=== PATIENT | female | born 1995 | race Caucasian/White ===

== ENCOUNTER 2019-02-23 18:30 | Inpatient (IN) | payer MEDICAID, OTHER ==
[~2019-02-23] VITALS: Ht 152.4 cm; Wt 70.5 kg
[2019-02-23 18:37] VITALS: Ht 152.4 cm; Wt 70.5 kg
[2019-02-23] MEDS ORDERED: HYDROmorphONE 1 MG/ML SYG ONE ×2 (18:56→20:17)
[2019-02-23] MEDS ORDERED: NACL 0.9% 3 ML SYG IV SCH (20:30)
[2019-02-23] MEDS ORDERED: HYDROCODONE/APAP (5/325) TAB PO PRN ×2 (20:30)
[2019-02-23] MEDS ORDERED: ACETAMINOPHEN 325 MG TAB PO PRN ×2 (20:30→21:00)
[2019-02-23] MEDS ORDERED: POTASSIUM CHLORIDE (SR) 20 MEQ TAB PO STA (20:32)
[2019-02-23] MEDS ORDERED: SOD CHLORIDE 0.9% 1,000 ML IV ONE (21:00)
[2019-02-23] MEDS ORDERED: ONDANSETRON 4 MG INJ IV PRN (21:00)
[2019-02-23] MEDS ORDERED: HEPARIN 5,000 UNIT/1 ML VIAL SC SCH (21:00)
--- NOTE | 2019-02-23 21:02 | ERD ---
ER Documentation Chief Complaint Chief Complaint fell while playing soccer about 20 min ago, c/o right thigh pain/deformity HPI Patient is a 23-year-old female with no medical problems who presents with right-sided thigh pain. The patient was playing soccer just prior to arrival and tripped while running. She said that her right thigh medially hurt and that it "feels loose". She does not currently have a primary doctor. She is had no treatment as of yet. She has pain with any range of motion and the pain is sharp in nature. ROS All systems reviewed and are negative except as per history of present illness. Allergies Allergies: Coded Allergies: No Known Drug Allergies (Verified Allergy, Unknown, 02/23/19) PMhx/Soc Medical and Surgical Hx: pt denies Medical Hx, pt denies Surgical Hx Hx Alcohol Use: No Hx Substance Use: No Hx Tobacco Use: No Smoking Status: Never smoker FmHx Family History: No diabetes Physical Exam Vitals Vital Signs Date Temp Pulse Resp B/P (MAP) Pulse Ox O2 O2 Flow FiO2 Time Delivery Rate 02/23/19 98.7 100 17 131/82 100 Room Air 20:51 (98) 02/23/19 100.7 114 20 125/78 97 18:37 (94) Physical Exam Const: Moderate distress secondary to pain Head: Atraumatic Eyes: Normal Conjunctiva ENT: Normal External Ears, Nose and Mouth. Neck: Full range of motion. No meningismus. Resp: Clear to auscultation bilaterally Cardio: Regular rate and rhythm, no murmurs Abd: Soft, non tender, non distended. Normal bowel sounds Skin: No petechiae or rashes Back: No midline or flank tenderness Ext: Right thigh swelling and likely deformity with pain to palpation Neur: Awake and alert Psych: Normal Mood and Affect Result Diagram: 02/23/19 18502/23/19 1853 Results 24 hrs Laboratory Tests Test 02/23/19 18:53 White Blood Count 13.2 10^3/ul Red Blood Count 4.63 10^6/ul Hemoglobin 14.1 g/dl Hematocrit 41.0 % Mean Corpuscular Volume 88.6 fl Mean Corpuscular Hemoglobin 30.5 pg Mean Corpuscular Hemoglobin Concent 34.4 g/dl Red Cell Distribution Width 12.0 % Platelet Count 356 10^3/UL Mean Platelet Volume 9.9 fl Immature Granulocytes % 0.600 % Neutrophils % 67.0 % Lymphocytes % 25.5 % Monocytes % 6.1 % Eosinophils % 0.6 % Basophils % 0.2 % Nucleated Red Blood Cells % 0.0 /100WBC Immature Granulocytes # 0.080 10^3/ul Neutrophils # 8.9 10^3/ul Lymphocytes # 3.4 10^3/ul Monocytes # 0.8 10^3/ul Eosinophils # 0.1 10^3/ul Basophils # 0.0 10^3/ul Nucleated Red Blood Cells # 0.0 10^3/ul Prothrombin Time 13.3 Sec Prothrombin Time Ratio 1.0 INR International Normalized Ratio 1.00 Activated Partial Thromboplast Time 25.8 Sec Sodium Level 141 mmol/L Potassium Level 3.2 mmol/L Chloride Level 105 mmol/L Carbon Dioxide Level 22 mmol/L Anion Gap 14 Blood Urea Nitrogen 12 mg/dl Creatinine 0.56 mg/dl Est Glomerular Filtrat Rate mL/min > 60 mL/min Glucose Level 111 mg/dl Calcium Level 10.0 mg/dl Total Bilirubin 0.3 mg/dl Direct Bilirubin 0.00 mg/dl Indirect Bilirubin 0.3 mg/dl Aspartate Amino Transf (AST/SGOT) 27 IU/L Alanine Aminotransferase (ALT/SGPT) 19 IU/L Alkaline Phosphatase 87 IU/L Troponin I < 0.012 ng/ml Total Protein 8.6 g/dl Albumin 4.6 g/dl Globulin 4.00 g/dl Albumin/Globulin Ratio 1.15 Lipase 40 U/L Serum HCG, Qualitative NEGATIVE Current Medications Medications Dose Sig/Katherine Start Time Status Last (Trade) Ordered Route PRN Stop Time Admin Dose Reason Admin 1 mg STK-MED 02/23/19 DC Hydromorphone ONCE .ROUTE 20:17 02/23/19 HCl 20:18 (Dilaudid) Sodium 1,000 ml @ Q10H IV 02/23/19 Chloride 100 mls/hr 20:28 IV Flush 3 ml PER 02/23/19 (NS 3 ml) PROTOCOL IV 20:30 Ondansetron 4 mg Q6H PRN 02/23/19 HCl (Zofran IV 20:30 Inj) NAUSEA/VOMITI NG 650 mg Q6H PRN 02/23/19 Acetaminophen PO .PAIN 1-3 20:30 (Tylenol OR TEMP Tab) 1 tab Q6H PRN 02/23/19 Acetaminophen PO .MOD PAIN 20:30 / 4-6 Hydrocodone Bitart ([place] (5/325)) 2 tab Q6H PRN 02/23/19 Acetaminophen PO .SEVERE 20:30 / PAIN 7-10 Hydrocodone Bitart ([place] (5/325)) Heparin 5,000 unit Q12 SC 02/23/19 Sodium 21:00 (Porcine) (Heparin (5000 Units/1ml)) Potassium 40 meq ONCE STAT 02/23/19 DC Chloride PO 20:32 02/23/19 (Klor-Con 20) 20:38 Sodium 1,000 ml @ Q1H ONCE 02/23/19 Chloride 1,000 mls/hr IV 21:00 02/23/19 21:59 Ondansetron 4 mg BRIDGE ORDER 02/23/19 HCl (Zofran PRN IV 21:00 02/24/19 Inj) NAUSEA/VOMITI 20:59 NG 650 mg ER BRIDGE 02/23/19 Acetaminophen PRN PO 21:00 02/24/19 (Tylenol .MILD PAIN 20:59 Tab) 1-3 OR TEMP Ceftriaxone 50 ml @ ONCE ONCE 02/23/19 Sodium 100 mls/hr IVPB 22:00 02/23/19 22:29 Procedures/MDM X-ray Femur 2V Interpreted by me: Bones: Mid shaft femur fracture Joints: No dislocation Foreign body: None Chest x-ray read by radiology. EKG read by me: Rate/Rhythm: Regular rate and rhythm at a normal rate Intervals: Normal Impression: No evidence of ischemia or arrhythmia Patient is a 23-year-old female who presents with a midshaft right sided femur fracture. I spoke with Dr. Woodruff from orthopedic surgery who is a surgeon on- call. He will see the patient and will likely need to operate. The patient has pre-operatory laboratory studies and imaging studies done. The patient was given Dilaudid for pain. The patient will be admitted to the care of Dr. Black to a medical surgical inpatient bed. Departure Diagnosis: Primary Impression: Femur fracture Encounter type: initial encounter Femur location: unspecified portion of femur Fracture type: closed Fracture morphology: unspecified fracture morphology Laterality: right Qualified Codes: S72.91XA - Unspecified fracture of right femur, initial encounter for closed fracture Condition: Serious MARTIN REMY MD February 23, 2019 21:02
[2019-02-23] MEDS ORDERED: HYDROmorphONE 2 MG/ML SYG IV STA (21:51)
[2019-02-23] MEDS ORDERED: CEFTRIAXONE 1 GM/50 ML (PMX) 50 ML IVPB ONE (22:00)
--- NOTE | 2019-02-23 22:12 | HP ---
Date/Time of Note Date/Time of Note DATE: 02/23/19 TIME: 22:12 Assessment/Plan VTE Prophylaxis SCD applied (from Nsg): Yes Pharmacological prophylaxis: NA/contraindicated Pharm contraindication: other (Awaiting surgical intervention) Lines/Catheters IV Catheter Type (from Nrsg): [place] Lock Assessment/Plan Assessment/Plan 1. Right femur fracture: Status post fall while playing soccer -Keep n.p.o. with IV fluids -Ortho following. -Patient does not have active chest pain. EKG without ST-T wave abnormalities. She is active with METS > 4. Chest x-ray does show cardiomegaly. 2D echo has been ordered. Patient however may proceed with planned surgery without further risk stratification. No need to wait for a completion of a 2D echo to proceed with surgery. -Pain management 2. SIRS: As evidenced by fever, leukocytosis and tachycardia -Likely stress-induced secondary to above -will however check chest x-ray, UA and blood culture as well as lactic 3. Cardiomegaly: As noted on chest x-ray -X-ray also shows borderline central pulmonary vascular congestion -2D echo ordered 4. Obesity with a BMI of 30: Weight reduction is advised Result Diagram: 02/23/19 1853 02/23/19 1853 Results 24hrs Laboratory Tests Test 02/23/19 18:53 02/23/19 21:04 02/23/19 21:09 White Blood Count 13.2 H Red Blood Count 4.63 Hemoglobin 14.1 Hematocrit 41.0 Mean Corpuscular Volume 88.6 Mean Corpuscular Hemoglobin 30.5 Mean Corpuscular 34.4 Hemoglobin Concent Red Cell Distribution Width 12.0 Platelet Count 356 Mean Platelet Volume 9.9 Immature Granulocytes % 0.600 H Neutrophils % 67.0 Lymphocytes % 25.5 Monocytes % 6.1 Eosinophils % 0.6 Basophils % 0.2 Nucleated Red Blood Cells % 0.0 Immature Granulocytes # 0.080 H Neutrophils # 8.9 H Lymphocytes # 3.4 H Monocytes # 0.8 Eosinophils # 0.1 Basophils # 0.0 Nucleated Red Blood Cells # 0.0 Prothrombin Time 13.3 Prothrombin Time Ratio 1.0 INR International 1.00 Normalized Ratio Activated Partial Thromboplast 25.8 Time Sodium Level 141 Potassium Level 3.2 L Chloride Level 105 Carbon Dioxide Level 22 Anion Gap 14 H Blood Urea Nitrogen 12 Creatinine 0.56 Est Glomerular Filtrat > 60 Rate mL/min Glucose Level 111 Calcium Level 10.0 Total Bilirubin 0.3 Direct Bilirubin 0.00 Indirect Bilirubin 0.3 Aspartate Amino 27 Transf (AST/SGOT) Alanine 19 Aminotransferase (ALT/SGPT) Alkaline Phosphatase 87 Troponin I < 0.012 Total Protein 8.6 H Albumin 4.6 Globulin 4.00 H Albumin/Globulin Ratio 1.15 Lipase 40 Serum HCG, Qualitative NEGATIVE Urine Color YELLOW Urine Clarity SLIGHTLY CLOUDY A Urine pH 6.0 Urine Specific [place] 1.020 Urine Ketones TRACE A Urine Nitrite NEGATIVE Urine Bilirubin NEGATIVE Urine Urobilinogen NEGATIVE Urine Leukocyte Esterase TRACE A Urine Microscopic RBC 1 Urine Microscopic WBC 1 Urine Bacteria FEW A Urine Mucus FEW A Urine Hemoglobin NEGATIVE Urine Glucose NEGATIVE Urine Total Protein NEGATIVE Lactic Acid Level 1.5 HPI/ROS Admit Date/Time Admit Date/Time Hx of Present Illness This is a 23-year-old female with no past medical history who presents the ER complaining of right lower extremity pain. She said that she fell while playing soccer. Imaging in the ER shows mildly displaced transverse fracture involving the right femoral diaphysis. PMH/Family/Social Past Medical History Medical History: no pertinent history Medications Current Medications Sodium Chloride 1,000 ml @ 100 mls/hr Q10H IV ; Start 02/23/19 at 20:28 IV Flush (NS 3 ml) 3 ml PER PROTOCOL IV ; Start 02/23/19 at 20:30 Ondansetron HCl (Zofran Inj) 4 mg Q6H PRN IV NAUSEA/VOMITING; Start 02/23/19 at 20:30 Acetaminophen (Tylenol Tab) 650 mg Q6H PRN PO .PAIN 1-3 OR TEMP; Start 02/23/19 at 20:30 Acetaminophen/ Hydrocodone Bitart ([place] (5/325)) 1 tab Q6H PRN PO .MOD PAIN 4- 6; Start 02/23/19 at 20:30 Acetaminophen/ Hydrocodone Bitart ([place] (5/325)) 2 tab Q6H PRN PO .SEVERE PAIN 7-10; Start 02/23/19 at 20:30 Heparin Sodium (Porcine) (Heparin (5000 Units/1ml)) 5,000 unit Q12 SC ; Start 02/23/19 at 21:00 Ondansetron HCl (Zofran Inj) 4 mg BRIDGE ORDER PRN IV NAUSEA/VOMITING; Start 02/23/19 at 21:00; Stop 02/24/19 at 20:59 Acetaminophen (Tylenol Tab) 650 mg ER BRIDGE PRN PO .MILD PAIN 1-3 OR TEMP; Start 02/23/19 at 21:00; Stop 02/24/19 at 20:59 Ceftriaxone Sodium 50 ml @ 100 mls/hr ONCE ONCE IVPB ; Start 02/23/19 at 22:00; Stop 02/23/19 at 22:29 Coded Allergies: No Known Drug Allergies (Verified Allergy, Unknown, 02/23/19) Past Surgical History Past Surgical Hx: no surgical history Family History Significant Family History: no pertinent family hx Social History Alcohol Use: none Smoking Status: Never smoker Drug Use: none Exam/Review of Systems Vital Signs Vitals Vital Signs Date Temp Pulse Resp B/P (MAP) Pulse Ox O2 O2 Flow FiO2 Time Delivery Rate 02/23/19 98.7 100 17 131/82 100 Room Air 20:51 (98) Exam Constitutional: other (No acute distress. Able to speak in full sentence and answering question appropriately) Head: normocephalic, atraumatic Eyes: EOMI, PERRL Respiratory: clear to auscultation, normal air movement Cardiovascular: other (Tachycardic regular rhythm) Gastrointestinal: soft, non-tender Extremities: other (Tenderness palpation of the right thigh.) PAM CAMACHO MD February 23, 2019 22:12
[2019-02-23 23:09] VITALS: BP 127/78; PULSE 94; RESP 17
[2019-02-23] MEDS: SOD CHLORIDE 0.9% 1,000 ML IV SCH (23:46)
[2019-02-23] MEDS: ONDANSETRON 4 MG INJ IV PRN (23:59)
[2019-02-24] MEDS ORDERED: DIAZEPAM 2 MG TAB PO PRN
[2019-02-24] MEDS ORDERED: DIAZEPAM 5 MG/ML SYG IV ONE (00:30)
[2019-02-24] MEDS ORDERED: DIAZEPAM 5 MG/ML SYG IV SCH (00:39)
--- NOTE | 2019-02-24 00:47 | CONS ---
Assessment/Plan Assessment/Plan Hospital Course (Demo Recall) 23-year-old female sustained a closed right femoral shaft fracture after an injury while playing soccer. She is neurovascularly intact. I reviewed treatment options with the patient. I strongly recommended surgical fixation with an intramedullary brenden. I reviewed benefits and risks with the patient. Risks include but not limited to medical complications, cardiopulmonary complications, anesthetic complications, DVT, bleeding, infection, nonunion, malunion, malrotation, hardware failure, neurovascular injury, continued pain, need to remove hardware, fracture, need for further surgery. She understood these benefits and risks and wished to proceed with surgery. Ideally the patient will be placed in skeletal traction until surgery. However to the best of my knowledge skeletal traction is not available at this hospital. Therefore Ruiz's traction will be utilized. Plan: Ruiz's traction 15 pounds right lower extremity Nonweightbearing right lower extremity N.p.o. Pain control. Valium 2 mg for muscle spasms S[place] DVT prophylaxis: SCDs while admitted. Lovenox 40 mg daily x6 weeks starting day after surgery Medical clearance Plan for surgery in the afternoon of 02/24/2019 Consultation Date/Type/Reason Admit Date/Time Date of Consultation: February 23, 2019 Reason for Consultation Right femur fracture Date/Time of Note DATE: 02/24/19 TIME: 00:37 Hx of Present Illness This is a 23-year-old female who was playing soccer today and stepped in a hole in the ground fell directly onto her femur. She presented to the emergency department [facility] with severe pain and right thigh deformity. Patient was diagnosed with a right femoral shaft fracture. Orthopedics was consulted. Patient does states she feels that her foot slightly numb but she can grossly feel sensation to her foot. Patient denies any other medical problems. Denies previous surgery. Denies previous injury to the right lower extremity. Patient denies fever, chills, shortness of breath, chest pain, nausea/vomiting, constipation, diarrhea Past Medical History Medical History: no pertinent history Medications Current Medications Sodium Chloride 1,000 ml @ 100 mls/hr Q10H IV Last administered on 02/23/19at 23:46; Admin Dose 100 MLS/HR; Start 02/23/19 at 20:28 IV Flush (NS 3 ml) 3 ml PER PROTOCOL IV ; Start 02/23/19 at 20:30 Ondansetron HCl (Zofran Inj) 4 mg Q6H PRN IV NAUSEA/VOMITING Last administered on 02/23/19at 23:59; Admin Dose 4 MG; Start 02/23/19 at 20:30 Acetaminophen (Tylenol Tab) 650 mg Q6H PRN PO .PAIN 1-3 OR TEMP; Start 02/23/19 at 20:30 Acetaminophen/ Hydrocodone Bitart ([place] (5/325)) 1 tab Q6H PRN PO .MOD PAIN 4- 6; Start 02/23/19 at 20:30 Acetaminophen/ Hydrocodone Bitart ([place] (5/325)) 2 tab Q6H PRN PO .SEVERE PAIN 7-10; Start 02/23/19 at 20:30 Ondansetron HCl (Zofran Inj) 4 mg BRIDGE ORDER PRN IV NAUSEA/VOMITING; Start 02/23/19 at 21:00; Stop 02/24/19 at 20:59 Acetaminophen (Tylenol Tab) 650 mg ER BRIDGE PRN PO .MILD PAIN 1-3 OR TEMP; Start 02/23/19 at 21:00; Stop 02/24/19 at 20:59 Diazepam (Valium) 2 mg Q6H PRN PO MUSCLE SPASMS Last administered on 02/24/19at 00:19; Admin Dose 2 MG; Start 02/24/19 at 00:00 Hydromorphone HCl (Dilaudid) 1 mg Q3H PRN IV BREAKTHROUGH PAIN; Start 02/24/19 at 00:00 Allergies: Coded Allergies: No Known Drug Allergies (Verified Allergy, Unknown, 02/23/19) Past Surgical History Past Surgical Hx: no surgical history Family History Significant Family History: no pertinent family hx Social History Alcohol Use: rarely Smoking Status: Never smoker Drug Use: none Exam/Review of Systems Exam Vitals Vital Signs Date Temp Pulse Resp B/P (MAP) Pulse Ox O2 O2 Flow FiO2 Time Delivery Rate 02/23/19 98.2 94 17 127/78 97 Room Air 23:09 (94) Intake and Output 02/23/19 02/23/19 02/24/19 1515:00 23:00 07:00 IntakeIntake Total 100 ml BalanceBalance 100 ml Exam General: Awake, alert, in no acute distress, pleasant and cooperative Heart: regular rhythm Lungs: breathing comfortably, no tachypnea or dyspnea MUSCULOSKELETAL: Patient is nontender to palpation throughout the entire body except for the right thigh. Right lower extremity: The skin is intact. There is a gross deformity to the mid thigh. There is swelling. There is tenderness palpation over the femur. Sensation intact to light touch in a sural, saphenous, deep peroneal, superficial peroneal, medial and lateral plantar nerve distribution. Motor is intact, patient able to dorsiflex and plantarflex ankle and extend and flex great toe. Dorsalis Pedis pulse +2, Brisk capillary refill. Compartments are soft. Calves non-tender to palpation bilaterally. Results Result Diagram: 02/23/19185202/23/191852 Results 24hrs Laboratory Tests Test 02/23/19 18:53 02/23/19 21:04 02/23/19 21:09 White Blood Count 13.2 H Red Blood Count 4.63 Hemoglobin 14.1 Hematocrit 41.0 Mean Corpuscular Volume 88.6 Mean Corpuscular Hemoglobin 30.5 Mean Corpuscular 34.4 Hemoglobin Concent Red Cell Distribution Width 12.0 Platelet Count 356 Mean Platelet Volume 9.9 Immature Granulocytes % 0.600 H Neutrophils % 67.0 Lymphocytes % 25.5 Monocytes % 6.1 Eosinophils % 0.6 Basophils % 0.2 Nucleated Red Blood Cells % 0.0 Immature Granulocytes # 0.080 H Neutrophils # 8.9 H Lymphocytes # 3.4 H Monocytes # 0.8 Eosinophils # 0.1 Basophils # 0.0 Nucleated Red Blood Cells # 0.0 Prothrombin Time 13.3 Prothrombin Time Ratio 1.0 INR International 1.00 Normalized Ratio Activated Partial Thromboplast 25.8 Time Sodium Level 141 Potassium Level 3.2 L Chloride Level 105 Carbon Dioxide Level 22 Anion Gap 14 H Blood Urea Nitrogen 12 Creatinine 0.56 Est Glomerular Filtrat > 60 Rate mL/min Glucose Level 111 Calcium Level 10.0 Total Bilirubin 0.3 Direct Bilirubin 0.00 Indirect Bilirubin 0.3 Aspartate Amino 27 Transf (AST/SGOT) Alanine 19 Aminotransferase (ALT/SGPT) Alkaline Phosphatase 87 Troponin I < 0.012 Total Protein 8.6 H Albumin 4.6 Globulin 4.00 H Albumin/Globulin Ratio 1.15 Lipase 40 Serum HCG, Qualitative NEGATIVE Urine Color YELLOW Urine Clarity SLIGHTLY CLOUDY A Urine pH 6.0 Urine Specific [place] 1.020 Urine Ketones TRACE A Urine Nitrite NEGATIVE Urine Bilirubin NEGATIVE Urine Urobilinogen NEGATIVE Urine Leukocyte Esterase TRACE A Urine Microscopic RBC 1 Urine Microscopic WBC 1 Urine Bacteria FEW A Urine Mucus FEW A Urine Hemoglobin NEGATIVE Urine Glucose NEGATIVE Urine Total Protein NEGATIVE Lactic Acid Level 1.5 Imaging Imaging AP pelvis, AP and lateral right femur, 3 views of the right knee personally reviewed. There is an acute transverse midshaft femur fracture. There is shortening and displacement of the fracture. Medications Medication Current Medications Sodium Chloride 1,000 ml @ 100 mls/hr Q10H IV Last administered on 02/23/19at 23:46; Admin Dose 100 MLS/HR; Start 02/23/19 at 20:28 IV Flush (NS 3 ml) 3 ml PER PROTOCOL IV ; Start 02/23/19 at 20:30 Ondansetron HCl (Zofran Inj) 4 mg Q6H PRN IV NAUSEA/VOMITING Last administered on 02/23/19at 23:59; Admin Dose 4 MG; Start 02/23/19 at 20:30 Acetaminophen (Tylenol Tab) 650 mg Q6H PRN PO .PAIN 1-3 OR TEMP; Start 02/23/19 at 20:30 Acetaminophen/ Hydrocodone Bitart ([place] (5/325)) 1 tab Q6H PRN PO .MOD PAIN 4- 6; Start 02/23/19 at 20:30 Acetaminophen/ Hydrocodone Bitart ([place] (5/325)) 2 tab Q6H PRN PO .SEVERE PAIN 7-10; Start 02/23/19 at 20:30 Ondansetron HCl (Zofran Inj) 4 mg BRIDGE ORDER PRN IV NAUSEA/VOMITING; Start 02/23/19 at 21:00; Stop 02/24/19 at 20:59 Acetaminophen (Tylenol Tab) 650 mg ER BRIDGE PRN PO .MILD PAIN 1-3 OR TEMP; Start 02/23/19 at 21:00; Stop 02/24/19 at 20:59 Diazepam (Valium) 2 mg Q6H PRN PO MUSCLE SPASMS Last administered on 02/24/19at 00:19; Admin Dose 2 MG; Start 02/24/19 at 00:00 Hydromorphone HCl (Dilaudid) 1 mg Q3H PRN IV BREAKTHROUGH PAIN; Start 02/24/19 at 00:00 BRYSON RUSSELL MD February 24, 2019 00:47
[2019-02-24 01:52] VITALS: BP 123/65; PULSE 100; RESP 18
[2019-02-24] MEDS: HYDROmorphONE 1 MG/ML SYG IV PRN ×3 (03:47→12:17)
[2019-02-24] MEDS: SOD CHLORIDE 0.9% 1,000 ML IV SCH ×2 (07:01→16:28)
[2019-02-24 07:36] VITALS: BP 106/57; PULSE 96; RESP 18
[2019-02-24] MEDS: ONDANSETRON 4 MG INJ IV PRN (10:14)
--- NOTE | 2019-02-24 10:48 | PN ---
Date/Time of Note Date/Time of Note DATE: 02/24/19 TIME: 10:47 Assessment/Plan VTE Prophylaxis Risk score (from Ns)>0 risk: 6 SCD applied (from [facility]): Yes Pharmacological prophylaxis: NA/contraindicated, LMWH Pharm contraindication: surgical contra Lines/Catheters IV Catheter Type (from [facility]): Peripheral IV Urinary Cath still in place: Yes Reason Cath still needed: other (indicate) Assessment/Plan Hospital Course SUBJECTIVE: left leg on traction. No pain. OBJECTIVE: Vital signs-see below PHYSICAL EXAM: Constitutional: Adequately built,not in acute distress. HEENT: Head atraumatic and normocephalic. Eyes: Extraocular muscles intact. Anicteric sclerae. Pupils equal bilaterally, reactive to light. NECK: Supple without lymph node. CHEST: Clear and good breath sounds equally. No wheezing. No rhonchi. HEART: S1, S2. Regular rate and rhythm. ABDOMEN: Soft/non tender with no rebound tenderness. Bowel sounds were present. EXTREMITIES: LLE on traction. No cyanosis, clubbing or edema. NEUROLOGIC: Alert and oriented x3. No focal deficit. No sensory deficit. PSYCHOSOCIAL: No signs of depression. INTEGUMENTARY: No open wounds. ASSESSMENT AND PLAN:23 yo f w/no pmh admitted w/ closed right femoral fx... 1. Acute right femoral shaft fracture. -Management per orthopedics. Currently on box traction 15 pounds to RLE. -Plan for IM nailing this afternoon. -Pain control,dvt ppx 2. Obesity with BMI 30.3. -Weight reduction advised. 3. Presumed UTI -Ceftriaxone x5 days. Follow-up urine culture-please note that patient received a dose of ceftriaxone prior to urine culture.. DVT prophylaxis: Per orthopedic, SCDs prior surgery and Lovenox 40 mg subcu x6 weeks post operative. Disposition: Plan for orthopedic intervention today. Follow-up orthopedic recommendation postoperatively. Patient was seen in collaboration with Dr. Telles. Result Diagram: 02/24/19 0432 02/24/19 0432 Results 24hrs Laboratory Tests Test 02/23/19 18:53 02/23/19 21:04 02/23/19 21:09 02/24/19 04:32 White Blood Count 13.2 H 10.5 # Red Blood Count 4.63 3.95 L Hemoglobin 14.1 12.2 Hematocrit 41.0 35.6 L Mean Corpuscular 88.6 90.1 Volume Mean Corpuscular 30.5 30.9 Hemoglobin Mean Corpuscular 34.4 34.3 Hemoglobin Concent Red Cell 12.0 12.0 Distribution Width Platelet Count 356 310 Mean Platelet 9.9 9.8 Volume Immature 0.600 H 0.400 Granulocytes % Neutrophils % 67.0 79.3 H Lymphocytes % 25.5 11.6 L Monocytes % 6.1 8.5 Eosinophils % 0.6 0.0 Basophils % 0.2 0.2 Nucleated Red 0.0 0.0 Blood Cells % Immature 0.080 H 0.040 H Granulocytes # Neutrophils # 8.9 H 8.3 H Lymphocytes # 3.4 H 1.2 Monocytes # 0.8 0.9 Eosinophils # 0.1 0.0 Basophils # 0.0 0.0 Nucleated Red 0.0 0.0 Blood Cells # Prothrombin Time 13.3 Prothrombin Time 1.0 Ratio INR International 1.00 Normalized Ratio Activated 25.[address] Time Sodium Level 141 140 Potassium Level 3.2 L 3.8 Chloride Level 105 107 Carbon Dioxide 22 23 Level Anion Gap 14 H 10 Blood Urea 12 8 Nitrogen Creatinine 0.56 0.43 L Est Glomerular > 60 > 60 Filtrat Rate mL/min Glucose Level 111 122 Calcium Level 10.0 9.0 Total Bilirubin 0.3 0.3 Direct Bilirubin 0.00 0.00 Indirect Bilirubin 0.3 0.3 Aspartate Amino 27 28 Transf (AST/SGOT) Alanine 19 16 Aminotransferase ( ALT/SGPT) Alkaline 87 71 Phosphatase Troponin I < 0.012 Total Protein 8.6 H 7.4 # Albumin 4.6 3.8 Globulin 4.00 H 3.60 H Albumin/Globulin 1.15 1.05 Ratio Lipase 40 Serum HCG, NEGATIVE Qualitative Urine Color YELLOW Urine Clarity SLIGHTLY CLOUDY A Urine pH 6.0 Urine Specific 1.020 [place] Urine Ketones TRACE A Urine Nitrite NEGATIVE Urine Bilirubin NEGATIVE Urine Urobilinogen NEGATIVE Urine Leukocyte TRACE A Esterase Urine Microscopic 1 RBC Urine Microscopic 1 WBC Urine Bacteria FEW A Urine Mucus FEW A Urine Hemoglobin NEGATIVE Urine Glucose NEGATIVE Urine Total NEGATIVE Protein Lactic Acid Level 1.5 Phosphorus Level 3.4 Magnesium Level 2.0 B-Type Natriuretic 92 Peptide Exam/Review of Systems Exam Vitals Vital Signs Date Temp Pulse Resp B/P (MAP) Pulse Ox O2 O2 Flow FiO2 Time Delivery Rate 02/24/19 98.0 96 18 106/57 99 Room Air 07:36 (73) Intake and Output 02/23/19 02/23/19 02/24/19 1515:00 23:00 07:00 IntakeIntake Total 1000 ml 1150 ml OutputOutput Total 800 ml BalanceBalance 1000 ml 350 ml Results Results 24hrs Laboratory Tests Test 02/23/19 18:53 02/23/19 21:04 02/23/19 21:09 02/24/19 04:32 White Blood Count 13.2 H 10.5 # Red Blood Count 4.63 3.95 L Hemoglobin 14.1 12.2 Hematocrit 41.0 35.6 L Mean Corpuscular 88.6 90.1 Volume Mean Corpuscular 30.5 30.9 Hemoglobin Mean Corpuscular 34.4 34.3 Hemoglobin Concent Red Cell 12.0 12.0 Distribution Width Platelet Count 356 310 Mean Platelet 9.9 9.8 Volume Immature 0.600 H 0.400 Granulocytes % Neutrophils % 67.0 79.3 H Lymphocytes % 25.5 11.6 L Monocytes % 6.1 8.5 Eosinophils % 0.6 0.0 Basophils % 0.2 0.2 Nucleated Red 0.0 0.0 Blood Cells % Immature 0.080 H 0.040 H Granulocytes # Neutrophils # 8.9 H 8.3 H Lymphocytes # 3.4 H 1.2 Monocytes # 0.8 0.9 Eosinophils # 0.1 0.0 Basophils # 0.0 0.0 Nucleated Red 0.0 0.0 Blood Cells # Prothrombin Time 13.3 Prothrombin Time 1.0 Ratio INR International 1.00 Normalized Ratio Activated 25.[address] Time Sodium Level 141 140 Potassium Level 3.2 L 3.8 Chloride Level 105 107 Carbon Dioxide 22 23 Level Anion Gap 14 H 10 Blood Urea 12 8 Nitrogen Creatinine 0.56 0.43 L Est Glomerular > 60 > 60 Filtrat Rate mL/min Glucose Level 111 122 Calcium Level 10.0 9.0 Total Bilirubin 0.3 0.3 Direct Bilirubin 0.00 0.00 Indirect Bilirubin 0.3 0.3 Aspartate Amino 27 28 Transf (AST/SGOT) Alanine 19 16 Aminotransferase ( ALT/SGPT) Alkaline 87 71 Phosphatase Troponin I < 0.012 Total Protein 8.6 H 7.4 # Albumin 4.6 3.8 Globulin 4.00 H 3.60 H Albumin/Globulin 1.15 1.05 Ratio Lipase 40 Serum HCG, NEGATIVE Qualitative Urine Color YELLOW Urine Clarity SLIGHTLY CLOUDY A Urine pH 6.0 Urine Specific 1.020 [place] Urine Ketones TRACE A Urine Nitrite NEGATIVE Urine Bilirubin NEGATIVE Urine Urobilinogen NEGATIVE Urine Leukocyte TRACE A Esterase Urine Microscopic 1 RBC Urine Microscopic 1 WBC Urine Bacteria FEW A Urine Mucus FEW A Urine Hemoglobin NEGATIVE Urine Glucose NEGATIVE Urine Total NEGATIVE Protein Lactic Acid Level 1.5 Phosphorus Level 3.4 Magnesium Level 2.0 B-Type Natriuretic 92 Peptide Medications Medication Current Medications Sodium Chloride 1,000 ml @ 100 mls/hr Q10H IV Last administered on 02/24/19at 07:01; Admin Dose 100 MLS/HR; Start 02/23/19 at 20:28 IV Flush (NS 3 ml) 3 ml PER PROTOCOL IV ; Start 02/23/19 at 20:30 Ondansetron HCl (Zofran Inj) 4 mg Q6H PRN IV NAUSEA/VOMITING Last administered on 02/24/19at 10:14; Admin Dose 4 MG; Start 02/23/19 at 20:30 Acetaminophen (Tylenol Tab) 650 mg Q6H PRN PO .PAIN 1-3 OR TEMP; Start 02/23/19 at 20:30 Acetaminophen/ Hydrocodone Bitart ([place] (5/325)) 2 tab Q6H PRN PO .SEVERE PAIN 7-10; Start 02/23/19 at 20:30 Ondansetron HCl (Zofran Inj) 4 mg BRIDGE ORDER PRN IV NAUSEA/VOMITING; Start 02/23/19 at 21:00; Stop 02/24/19 at 20:59 Acetaminophen (Tylenol Tab) 650 mg ER BRIDGE PRN PO .MILD PAIN 1-3 OR TEMP; Start 02/23/19 at 21:00; Stop 02/24/19 at 20:59 Diazepam (Valium) 2 mg Q6H PRN PO MUSCLE SPASMS Last administered on 02/24/19at 00:19; Admin Dose 2 MG; Start 02/24/19 at 00:00 Hydromorphone HCl (Dilaudid) 1 mg Q3H PRN IV BREAKTHROUGH PAIN Last administered on 02/24/19at 07:05; Admin Dose 1 MG; Start 02/24/19 at 00:00 Ceftriaxone Sodium 500 mg/ Sodium Chloride 50 ml @ 100 mls/hr Q24H IVPB ; Start 02/24/19 at 11:00; Stop 02/28/19 at 11:29; Status UNV BERONICA GOMEZ NP February 24, 2019 10:48
[2019-02-24] MEDS ORDERED: CEFTRIAXONE 500 MG in SOD CHLORIDE 0.9% 50 ML IVPB SCH (11:00)
--- NOTE | 2019-02-24 14:16 | RADRPT ---
Echocardiogram Report Patient Name: LATONYA FRANKPatient ID: [id number] : 1995 (23y 2m)Study Date: 02/24/2019 7:17:34 AM Gender: FAccession #: [id number] Tech: Brandie Fairbanks RDCS Location: [facility] Ref.Physician: PAM CAMACHO Height(Cm): BSA: Weight(Kg): Quality: AdequateAccount #: Procedures: Echocardiographic Report: Transthoracic echocardiogram with complete 2D, M-Mode, and doppler examination. Indications: Pulmonary vasc congestion, cardiomegaly. Measurements: 2D/M Mode Doppler Measurement Value Normal Range Measurement Value Normal Range LVIDd 2D 4.5 [ 3.8 - 5.2 ] cm AV Peak Damaso 1.7 [ 100.0 - 170.0 ] cm/sec LVIDs 2D 2.8 [ 2.2 - 3.5 ] cm AV Peak PG 11.0 [ 2.0 - 9.0 ] mmHg LVPWd 2D 0.9 [ 0.6 - 0.9 ] cm LVOT Peak Damaso 1.1 [ 70.0 - 110.0 ] cm/sec IVSd 2D 1.0 [ 0.6 - 0.9 ] cm LVOT Peak PG 5.0 [ 2.0 - 6.0 ] mmHg AoR Diam 2D 2.2 [ 2.3 - 3.1 ] cm MV E Peak Damaso 0.8 [ 60.0 - 130.0 ] cm/sec EDV 2D 93.9 [ 46.0 - 106.0 ] ml MV A Peak Damaso 1.0 [ 100.0 - 120.0 ] cm/sec ESV 2D 30.1 [ 14.0 - 42.0 ] ml MV E/A 0.8 [ 0.8 - 1.5 ] ratio EF 2D 67.9 [ 54.0 - 74.0 ] percent MV Decel Time 187 [ 104 - 258 ] msec LA Dimen 2D 2.5 [ 2.7 - 3.8 ] cm MV E/A 0.8 [ 0.8 - 1.5 ] ratio TR Peak Damaso 2.3 [ 100.0 - 280.0 ] cm/sec TR Peak PG 20.0 mmHg RVSP 33.0 [ 10.0 - 36.0 ] mmHg RA Pressure 10.0 mmHg Findings: Left Ventricle: Normal left ventricular systolic function. Normal left ventricular cavity size. Normal left ventricular wall thickness. Ejection fraction is visually estimated at 55 %. Right Ventricle: Normal right ventricular size. Normal right ventricular systolic function. Left Atrium: The left atrium is normal in size. Right Atrium: The right atrium is normal in size. Mitral Valve: Normal appearance and function of the mitral valve with trace physiologic regurgitation. Aortic Valve: Normal appearance of the aortic valve. No significant aortic stenosis or insufficiency. Tricuspid Valve: Normal appearance of the tricuspid valve. Estimated peak PA systolic pressure 23 mmHg. There is trace tricuspid regurgitation. Pulmonic Valve: Pulmonic valve not well visualized. Pericardium: Normal pericardium with no significant pericardial effusion. Aorta: Normal aortic root. IVC: Normal size and normal respiratory collapse consistent with normal right atrial pressure. Conclusions: Normal left ventricular systolic function. Normal left ventricular cavity size. Normal left ventricular wall thickness. Ejection fraction is visually estimated at 55 %. Normal appearance and function of the mitral valve with trace physiologic regurgitation. Normal appearance of the tricuspid valve. Estimated peak PA systolic pressure 23 mmHg. There is trace tricuspid regurgitation. Electronically Signed By: Kenneth Sandoval 2019-02-24 14:16:22 PDT
--- NOTE | 2019-02-24 15:21 | QN ---
Documentation Comment Preoperative risk stratification: Patient's chest x-ray showed cardiomegaly and borderline central pulmonary vascular congestion. Patient completely asymptomatic. She does not have any cardiac/pulmonary disease history. Echocardiogram with preserved ejection fraction. Normal pulmonary artery pressure. No valvular regurgitation. Will have autism specialist follow-up on the chest x-ray as well. Please follow-up pulmonary recommendations. Patient overall is medically cleared to undergo orthopedic surgery for hip fracture. Given patient's medical condition, patient is at a low to intermediate risk for any untoward medical events for surgery. However, benefit likely outweigh risks and recommended to have surgical intervention. Case discussed with BERONICA López NP February 24, 2019 15:21
[2019-02-24 15:41] VITALS: BP 114/58; PULSE 98; RESP 18
--- NOTE | 2019-02-24 17:36 | CONS ---
DATE OF ADMISSION: 02/23/2019 DATE OF CONSULTATION: TYPE OF CONSULTATION: Pulmonary. REASON FOR CONSULTATION: Preop clearance. Thank you, Dr. Dai, for this consultation. HISTORY OF PRESENT ILLNESS: This is a 23-year-old lady who had a recent mechanical fall while playin g soccer, sustained a right femur fracture and had preop chest x-ray which showed mild cardiomegaly, questionable increased vascular congestion. Echocardiogram, however, showed preserved ejection fract ion. The patient is scheduled for surgery this afternoon. Prior to surgery, she has had no preexist ing pulmonary problems. No history of asthma, emphysema. No recurrent chest infections. No cough, fever, or chills. No exertional dyspnea. She remains extremely active before this event. PAST MEDICAL HISTORY: As above. MEDICATIONS: Per chart. ALLERGIES: NONE. SOCIAL HISTORY: Nonsmoker, no alcohol, no history of drug use. FAMILY HISTORY: Noncontributory. SYSTEMS REVIEW: A 12-point review of systems was negative other than that mentioned above. PHYSICAL EXAMINATION: GENERAL: Well-nourished, well-developed lady, comfortable at rest, in no acute distress. VITAL SIGNS: Currently afebrile, pulse is 90, blood pressure 106/57, O2 saturation 99% on room air. NECK: Supple. No JVD or lymphadenopathy. CARDIAC: S1, S2. No added sounds or murmurs. CHEST: Diminished air entry bilaterally. ABDOMEN: Soft, nontender. No guarding or rebound. EXTREMITIES: No cyanosis, clubbing or edema. NEUROLOGIC: Grossly intact. No focal deficits. LABORATORY DATA: White count 10.5, hemoglobin 12.2, platelets 310. Chemistry within normal limits. IMPRESSION AND PLAN: Recent mechanical fall sustaining right femur fracture with chest x-ray that sh owed questionable congestion however normal echocardiogram. From pulmonary standpoint, the patient i s stable to proceed with orthopedic surgery. I recommend outpatient pulmonary followup with repeat c hest x-ray and possible pulmonary function testing. Dictated By: OLLIE KEVIN MD SV/NIURKA Conf#: [id number] DID#: [id number] CC: PAM CAMACHO MD;*EndCC*
[2019-02-24] MEDS ORDERED: FENTAnyl 50 MCG/ML VIAL ONE (18:40)
[2019-02-24] MEDS ORDERED: PROPOFOL 20 ML ONE (18:40)
[2019-02-24] MEDS ORDERED: MIDAZOLAM 1 MG/ML 2 ML INJ ONE (18:40)
[2019-02-24] MEDS ORDERED: ROCURONIUM 50 MG INJ ONE (18:40)
[2019-02-24] MEDS ORDERED: CEFAZOLIN 1 GM INJ ONE (18:40)
[2019-02-24] MEDS ORDERED: NEOSTIGMINE 3 MG/3 ML SYRINGE ONE (18:40)
[2019-02-24] MEDS ORDERED: GLYCOPYRROLATE 0.4 MG INJ ONE (18:40)
[2019-02-24] MEDS ORDERED: ONDANSETRON 4 MG INJ ONE (18:41)
[2019-02-24] MEDS ORDERED: DEXAMETHASONE 4 MG/ML 5 ML INJ ONE (18:41)
[2019-02-24] MEDS ORDERED: morphine SULFATE/PF (10 MG/10 ML) INJ ONE (18:42)
--- NOTE | 2019-02-24 19:20 | PREAC ---
Date/Time of Note Date/Time of Note DATE: 02/24/19 TIME: 19:18 Anesthesia Eval and Record Evaluation Time Pre-Procedure Interview DATE: 02/24/19 TIME: 19:18 Age 23 Sex female NPO: 8 hrs Preoperative diagnosis left femur shaft fracture Planned procedure orif left femur shaft fracture Past Medical History Past Medical History: Includes GI: Obesity Surgery & Anesthesia Issues No known issue Meds Anticoagulation: No Beta Jerod within 24 hr: No Reason Beta Jerod not given: Pt. not on B-Jerod Current Medications Sodium Chloride 1,000 ml @ 100 mls/hr Q10H IV Last administered on 02/24/19at 07:01; Admin Dose 100 MLS/HR; Start 02/23/19 at 20:28 IV Flush (NS 3 ml) 3 ml PER PROTOCOL IV ; Start 02/23/19 at 20:30 Ondansetron HCl (Zofran Inj) 4 mg Q6H PRN IV NAUSEA/VOMITING Last administered on 02/24/19at 10:14; Admin Dose 4 MG; Start 02/23/19 at 20:30 Acetaminophen (Tylenol Tab) 650 mg Q6H PRN PO .PAIN 1-3 OR TEMP; Start 02/23/19 at 20:30 Acetaminophen/ Hydrocodone Bitart ([place] (5/325)) 2 tab Q6H PRN PO .SEVERE PAIN 7-10; Start 02/23/19 at 20:30 Ondansetron HCl (Zofran Inj) 4 mg BRIDGE ORDER PRN IV NAUSEA/VOMITING; Start 02/23/19 at 21:00; Stop 02/24/19 at 20:59 Acetaminophen (Tylenol Tab) 650 mg ER BRIDGE PRN PO .MILD PAIN 1-3 OR TEMP; Start 02/23/19 at 21:00; Stop 02/24/19 at 20:59 Diazepam (Valium) 2 mg Q6H PRN PO MUSCLE SPASMS Last administered on 02/24/19at 00:19; Admin Dose 2 MG; Start 02/24/19 at 00:00 Hydromorphone HCl (Dilaudid) 1 mg Q3H PRN IV BREAKTHROUGH PAIN Last administered on 02/24/19at 12:17; Admin Dose 1 MG; Start 02/24/19 at 00:00 Ceftriaxone Sodium 500 mg/ Sodium Chloride 50 ml @ 100 mls/hr Q24H IVPB Last administered on 02/24/19at 12:25; Admin Dose 100 MLS/HR; Start 02/24/19 at 11:00; Stop 02/28/19 at 11:29 Meds reviewed: Yes Allergies Coded Allergies: No Known Drug Allergies (Verified Allergy, Unknown, 02/23/19) Allergies Reviewed: Yes Labs/Studies Labs Reviewed: Reviewed by anesthesiologist Result Diagram: 02/24/19 0432 02/24/19 0432 Laboratory Tests 02/24/19 04:32 test: Negative Pre-procedure Exam Last vitals Vital Signs Date Temp Pulse Resp B/P (MAP) Pulse Ox O2 O2 Flow FiO2 Time Delivery Rate 02/24/19 98.0 98 18 114/58 95 Room Air 15:41 (76) Airway: Adequate mouth opening, Adequate thyromental dist Mallampati: Mallampati II Teeth: Normal Lung: Normal Heart: Normal ASA Physical Status ASA physical status: 2 Emergency: None Planned Anesthetic General/MAC: ETT Planned Pain Management Sub-arachniod narcotics, Parenteral pain med Pre-operative Attestations Prior to commencing anesthesia and surgery, the patient was re-evaluated, there was verification of: *The patient's identity *The results of appropriate recent lab work and preoperative vital signs *The above evaluation not changing prior to induction *Anesthetic plan, risk benefits, alternative and complications discussed with patient/family; questions answered; patient/family understands, accepts and wishes to proceed. Sandor Celeste M.D. February 24, 2019 19:20
[2019-02-24] MEDS ORDERED: POLYMYXIN/BACITRACIN 1L IRRIG IRR ONE (19:29)
[2019-02-24] MEDS ORDERED: ZOLPIDEM 5 MG TAB PO PRN (19:30)
[2019-02-24] MEDS ORDERED: IPRATROPIUM (NEB) 0.5 MG/2.5 ML AMP HHN PRN (19:30)
[2019-02-24] MEDS ORDERED: FENTAnyl 50 MCG/ML VIAL IV PRN ×3 (19:30)
[2019-02-24] MEDS ORDERED: HYDROmorphONE 1 MG/5 ML IV SYRINGE IV PRN ×3 (19:30)
[2019-02-24] MEDS ORDERED: TRIMETHOBENZAMIDE 100 MG/ML VIAL IM PRN ×2 (19:30)
[2019-02-24] MEDS ORDERED: LABETALOL HCL 20MG INJ IV PRN (19:30)
[2019-02-24] MEDS ORDERED: DIPHENHYDRAMINE 50 MG INJ IV PRN ×2 (19:30)
[2019-02-24] MEDS ORDERED: NALOXONE (0.4 MG/ML) INJ IV PRN (19:30)
[2019-02-24] MEDS ORDERED: MIDAZOLAM 1 MG/ML 2 ML INJ IV PRN (19:30)
[2019-02-24] MEDS ORDERED: EPHEDrine SULFATE 50 MG/5 ML SYG IV PRN (19:30)
[2019-02-24] MEDS ORDERED: MEPERIDINE 25 MG INJ IV PRN (19:30)
[2019-02-24] MEDS ORDERED: HYDROmorphONE 0.5 MG/0.5 ML SYG IV PRN ×2 (19:30)
[2019-02-24] MEDS ORDERED: hydrALAzine 20 MG INJ IV PRN (19:30)
[2019-02-24] MEDS ORDERED: KETOROLAC 30 MG INJ IV PRN (19:30)
[2019-02-24] MEDS ORDERED: NALBUPHINE HCL (10 MG/1 ML) INJ IV PRN (19:30)
[2019-02-24] MEDS ORDERED: ONDANSETRON 4 MG INJ IV PRN ×2 (19:30)
[2019-02-24] MEDS ORDERED: ALBUTEROL 0.083% (NEB) 2.5 MG/3 ML AMP HHN PRN (19:30)
[2019-02-24] MEDS ORDERED: OXYCODONE/ACETAMINOPHEN (5/325) TAB PO PRN ×2 (19:30)
[2019-02-24] MEDS ORDERED: POLYMYXIN/BACITRACIN 1L IRRIG ONE (23:31)
[2019-02-25] VITALS (23 sets, daily range): BP systolic 101–141; BP diastolic 56–84; PULSE 79–142; RESP 10–28
[2019-02-25] MEDS ORDERED: SUGAMMADEX SODIUM 200 MG/2 ML VIAL IV ONE (00:10)
[2019-02-25] MEDS: ONDANSETRON 4 MG INJ IV PRN (00:53)
[2019-02-25] MEDS ORDERED: oxyCODONE 15 MG TAB PO PRN (01:00)
--- NOTE | 2019-02-25 01:22 | OPR ---
Date/Time of Note Date/Time of Note DATE: 02/25/19 TIME: : Operative Report Procedure Date: February 24, 2019 Preoperative Diagnosis Closed right femoral shaft fracture Postoperative Diagnosis Same as preoperative diagnosis Operation/Procedure Performed Intramedullary nail of right femoral shaft fracture Surgeon see signature line Field Pipelines Supervisor none Anesthesia Type: general, spinal Estimated Blood Loss: 200 - 250 ml's Transfusion none Specimen None Grafts/Implants Jacque T2 lateral entry femoral nail 9 x 320 mm 4 interlocking screws 1 compression screw Tubes/Drains None Complications none Pt Condition Post Procedure: stable Disposition: PACU Procedure Description Indications and consent: Is a 23-year-old female who presented to the emergency department Sunday evening after stepping in a ditch while playing with soccer. She had severe right leg pain and was unable to bear weight. She was diagnosed with a right transverse proximal 1/3 femoral shaft fracture in the emergency department it was closed. She is neurovascular intact. Orthopedics was consulted. She was then examined and found to have no other injuries. She was neurovascularly intact. I reviewed treatment options with the patient. I strongly recommended surgical treatment with intramedullary nail. Reviewed the benefits and risks with the patient. Risks include but not limited to medical complications, anesthetic complications, cardiopulmonary complications, DVT, bleeding, infection, nonunion, malunion, hardware failure, pain, neurovascular injury, need for further surgery. She understood these benefits and risks and wished to proceed with surgery. Procedure in detail: The patient was brought to the operating room. She was given a spinal anesthetic and general anesthetic. She was transferred from the hospital bed to the [place] table in supine position. All bony prominences were well-padded. At this time the right lower extremity was placed in traction. Fluoroscopy was used to confirm stability to obtain appropriate views. Fracture was preliminary reduced with traction and a crutch under the distal fragment. At this time the right lower extremity was prepped and draped in normal sterile fashion. Timeout was performed confirming the patient's name, medical record number, diagnosis, procedure performed and laterality procedure. 2 g of Ancef was dosed. At this time fluoroscopy was used to obtain the location of the greater trochanter as well as the longitudinal axis of the femur. The patient was muscular as well as had a significant subcutaneous adipose layer. A 6 to 8 cm incision was made slightly posterior and proximal to the tip of the greater trochanter. Because of deforming forces of the fracture the greater trochanter was more posterior as the proximal femur was externally rotated. Once the tip the greater trochanter could be palpated a starting awl was used to find the starting point. This was just medial to the tip of the greater trochanter and over the middle to anterior one third on the lateral. Once this was obtained and confirmed on fluoroscopy a guidepin was placed through the starting awl. There was some difficulty adducting enough to obtain the appropriate angle. This had to be tried several times. The soft tissue sleeve was placed over the guidepin followed by the opening reamer. After this was complete our attention turned towards the fracture. The fracture was transverse. There was very little cortical read. The fracture reduced nicely on AP. However on the lateral the proximal fragment was flexed and displaced 100%. External forces such as using a mallet were not substantial enough to reduce this on the lateral x-ray. More traction was placed to unhook any impaction of the fracture. At this time a small incision was made over the anterior thigh near the fracture site over the proximal fragment. Hemostat was used to palpate bone. A large Steinmann pin was driven into the femur from the AP direction. This was used as a joystick the fracture was easily reduced. Releasing this time and pin the fracture remained most reduced and ulnar required external forces to complete reduction. Therefore this time pin was backed out to be unicortical in order not to be in the way of reaming. Reduction was confirmed on AP and lateral x-rays. A ball-tipped guidewire was then placed down the femoral shaft. The ball-tipped guidewire had a small bend to it. The ball-tipped guidepin easily passed through the fracture site down into the distal physeal scar of the femur. AP and lateral imaging confirmed the ball-tipped guidewire to be in the center in both planes. Length the nail was measured to be approximately 350. However there was planned compression given the transverse nature of the fracture and the ball-tipped guidewire was slightly deep. Therefore a 320 mm nail was chosen. At this time we continued to keep reduction began to ream starting the 9 mm then a 10 mm then a 10.5 mm diameter reamer. At 10.5 mm diameter there was substantial chatter. Therefore a 9 mm diameter nail was chosen. At this time the 9 x 320 mm nail was placed over the ball-tipped guidewire and inserted into the femur. This was a very tight fit. The slotted mallet was used to impact the femoral nail into the appropriate position. Since was plan compression the nail was buried approximately 10-15mm. At this time attention turned towards the rotation of the reduction. Both extremities were placed in identical rotation on the [place] table. AP pelvis was taken with fluoroscopy demonstrating symmetric femoral necks and lesser trochan ter profiles. Therefore the rotational alignment was good as well as the coronal and sagittal. Perfect circles were then used to place 2 distal interlocking screws. Once this was complete the compression screw was used to compress the fracture site. The fracture compressed a few millimeters. At this time another proximal static interlocking screw was placed. Final x-rays conf irmed good positioning of components as well as good reduction. The cheek was removed. The nail was deep about 10 mm. Therefore a 10 mm end cap was chosen. Then end cap was attempted to be placed. However secondary to the patient's body habitus it was not possible to get the end cap in line with the nail. The end cap continued to cross thread. Therefore decided be best to remove the end cap. This time the wounds were closely irrigated. The IT band and glutes max was fascia was closed with 0 Vicryl [id number] fashion. Deep subcutaneous closed with 0 Vicryl simple interrupted fashion. The subcutaneous layer closed with 2-0 Vicryl. Skin was closed with eloisa. Wounds dressed with Mepilex. All counts were correct x2 Disposition: Patient was explained transferred to PACU in stable condition. She will be weightbearing as tolerated on the right lower extremity. She will be on DVT prophylaxis Lovenox 40 mg daily x6 weeks. She will be on prophylactic antibiotics for 24 hours. She will have physical therapy tomorrow. Discharge planning. BRYSON RUSSELL MD February 25, 2019 01:22
[2019-02-25] MEDS: SOD CHLORIDE 0.9% 1,000 ML IV SCH (04:19)
[2019-02-25] MEDS: CEFAZOLIN 1 GM/50 ML (PMX) 50 ML IVPB SCH ×3 (05:54→21:53)
--- NOTE | 2019-02-25 06:52 | CONS ---
Assessment/Plan Assessment/Plan Assessment/Plan (Daily) Status post trauma to the right leg with femoral fracture. Scheduled for surgery 02/24/2019. I have seen patient prior to surgery and Told her she will probably need to have some postoperative pain control. Consultation Date/Type/Reason Admit Date/Time Date/Time of Note DATE: 02/25/19 TIME: 06:49 Hx of Present Illness Is a very pleasant 23-year-old female who fractured her right femur while playing soccer. Patient states that she ran into another person fell down. There is no prior chest pain shortness of breath PND orthopnea pitting edema syncope true vertigo. She was not knocked unconscious there was no tonic-clonic seizure activity biting of her tongue or incontinence of urine or feces. Was transported to emergency room [facility] diagnosed with right femoral fracture seen by orthopedic surgery and scheduled to have a definitive procedure done 02/24/2017. Patient states she has [place] no pain at all. She has no other comorbid medical problems. Constitutional: no complaints, improved Eyes: no complaints ENT: no complaints Respiratory: no complaints Cardiovascular: no complaints Gastrointestinal: no complaints Genitourinary: no complaints Musculoskeletal: no complaints Skin: no complaints Neurologic: no complaints Endocrine: no complaints Lymphatic: no complaints Psychological: no complaints, nl mood/affect Immunologic: no complaints Past Medical History Medical History: no pertinent history Medications Current Medications Sodium Chloride 1,000 ml @ 100 mls/hr Q10H IV Last administered on 02/25/19at 04:19; Admin Dose 100 MLS/HR; Start 02/23/19 at 20:28 IV Flush (NS 3 ml) 3 ml PER PROTOCOL IV ; Start 02/23/19 at 20:30 Ondansetron HCl (Zofran Inj) 4 mg Q6H PRN IV NAUSEA/VOMITING Last administered on 02/25/19at 00:53; Admin Dose 4 MG; Start 02/23/19 at 20:30 Acetaminophen (Tylenol Tab) 650 mg Q6H PRN PO .PAIN 1-3 OR TEMP; Start 02/23/19 at 20:30 Diazepam (Valium) 2 mg Q6H PRN PO MUSCLE SPASMS Last administered on 02/24/19at 00:19; Admin Dose 2 MG; Start 02/24/19 at 00:00 Hydromorphone HCl (Dilaudid) 1 mg Q3H PRN IV BREAKTHROUGH PAIN Last administered on 02/24/19at 12:17; Admin Dose 1 MG; Start 02/24/19 at 00:00 Ceftriaxone Sodium 500 mg/ Sodium Chloride 50 ml @ 100 mls/hr Q24H IVPB Last administered on 02/24/19at 12:25; Admin Dose 100 MLS/HR; Start 02/24/19 at 11:00; Stop 02/28/19 at 11:29 Ketorolac Tromethamine (Toradol) 30 mg Q6H PRN IV .PAIN 6-10; Start 02/24/19 at 19:30; Stop 02/25/19 at 20:30 Diphenhydramine HCl (Benadryl) 25 mg Q4H PRN IV .PRURITUS; Start 02/24/19 at 19:30; Stop 02/25/19 at 20:30 Nalbuphine HCl (Nubain) 10 mg Q4H PRN IV .PRURITUS; Start 02/24/19 at 19:30; Stop 02/25/19 at 20:30 Trimethobenzamide HCl (Tigan) 200 mg Q6H PRN IM .NAUSEA/VOMITING; Start 02/24/19 at 19:30; Stop 02/25/19 at 20:30 Zolpidem Tartrate (Ambien) 5 mg HS MAY REPEAT X 1 PRN PO .INSOMNIA; Start 02/24/19 at 19:30; Stop 02/25/19 at 20:30 Naloxone HCl (Narcan) 0.2 mg Q2M PRN IV .RESP RATE; Start 02/24/19 at 19:30; Stop 02/25/19 at 20:30 Miscellaneous Information (* Miscellaneous Pharmacy Order) DURAMORPH: 0.2 MG SPI... GIVEN NEURAXIAL XX ; Start 02/24/19 at 19:30 Oxycodone HCl (Roxicodone) 5 mg Q4H PRN PO MODERATE PAIN LEVEL 4-6; Start 02/25/19 at 01:00 Oxycodone HCl (Roxicodone) 10 mg Q4H PRN PO MODERATE PAIN LEVEL 7-8; Start 02/25/19 at 01:00 Oxycodone HCl (Roxicodone) 15 mg Q4H PRN PO SEVERE PAIN LEVEL 9-10; Start 02/25/19 at 01:00 Enoxaparin Sodium (Lovenox) 40 mg DAILY SC ; Start 02/25/19 at 09:00 Cefazolin Sodium 50 ml @ 100 mls/hr Q8 IVPB Last administered on 02/25/19at 05 :54; Admin Dose 100 MLS/HR; Start 02/25/19 at 06:00; Stop 02/25/19 at 22:29 Dexamethasone (Decadron) 10 mg ONCE ONCE IV ; Start 02/25/19 at 08:00; Stop 02/25/19 at 08:01 Allergies: Coded Allergies: No Known Drug Allergies (Verified Allergy, Unknown, 02/23/19) Past Surgical History Past Surgical Hx: no surgical history Social History Alcohol Use: none Smoking Status: Never smoker Drug Use: none Exam/Review of Systems Exam Vitals Vital Signs Date Temp Pulse Resp B/P (MAP) Pulse Ox O2 O2 Flow FiO2 Time Delivery Rate 02/25/19 84 17 101/59 97 Nasal 2.0 04:30 (73) Cannula 02/25/19 97.9 01:31 Intake and Output 02/24/19 02/24/19 02/25/19 1515:00 23:00 07:00 IntakeIntake Total 50 ml 1000 ml OutputOutput Total 1900 ml BalanceBalance 50 ml 1000 ml -1900 ml Constitutional: No alert, No oriented, No well developed, No non-verbal, No di stress, No frail, No obese, No other Psych: No no complaints, No nl mood/affect, No anxiety, No confusion, No depression, No suicidal, No other Head: No normocephalic, No atraumatic, No lacerations, No hematomas, No other Eyes: No nl conjunctiva, No EOMI, No nl lids, No nl sclera, No PERRL, No icteric, No fundi, disc, No other ENMT: No nl external ears & nose, No nl lips & teeth, No nl nasal mucosa & septum, No mucosa pink and moist, No intubated, No tympanic membranes, No other Neck: No supple, No non-tender, No jvd, No bruits, No masses, No thyromegaly, No nuchal rigidity, No other Respiratory: No clear to auscultation, No normal air movement, No congested c ough, No crackles/rales, No diminished breath sounds, No intercostal retraction, No labored breathing, No respirations, No tactile fremitus, No wheezing, No other Cardiovascular: No regular rate and rhythm, No nl pulses, No bruits, No diastolic murmur, No edema, No gallop, No irregular rhythm, No jugular venous distention (JVD), No murmurs/extra sounds, No rub, No systolic murmur, No S3, No S4, No other Gastrointestinal: No soft, No nl liver, spleen, No non-tender, No ascites, No bowel sounds, No distended, No firm, No hepatomegaly, No mass, No rebound or guarding, No splenomegaly, No surgical scars, No tender, No other Musculoskeletal: other (Bandaged right lower extremity) Extremities: No normal pulses, No calf tenderness, No cyanosis, No clubbing, No edema, No pitting pedal edema, No palpable cord, No tenderness, No other Neurological: No WOOL FLEECE GRADER II-XII intact, No nl mental status, No nl speech, No nl strength, No confused, No DTR's symmetric, No focal weakness, No lethargic, No numbness, No reflexes, No unresponsive, No other Skin: No nl turgor, No rash or lesions, No diaphoresis, No ecchymosis, No laceration, No puncture, No other Lymph: No nl lymph nodes, No enlarged, No nontender, No other Results Result Diagram: 02/25/1945002/25/19 0451 Results 24hrs Laboratory Tests Test 02/25/19 04:51 White Blood Count 10.4 Red Blood Count 3.76 L Hemoglobin 11.5 L Hematocrit 34.8 L Mean Corpuscular Volume 92.6 Mean Corpuscular Hemoglobin 30.6 Mean Corpuscular Hemoglobin Concent 33.0 Red Cell Distribution Width 12.3 Platelet Count 248 Mean Platelet Volume 9.6 Immature Granulocytes % 0.400 Neutrophils % 91.9 H Lymphocytes % 4.6 L Monocytes % 3.0 Eosinophils % 0.0 Basophils % 0.1 Nucleated Red Blood Cells % 0.0 Immature Granulocytes # 0.040 H Neutrophils # 9.6 H Lymphocytes # 0.5 L Monocytes # 0.3 Eosinophils # 0.0 Basophils # 0.0 Nucleated Red Blood Cells # 0.0 Sodium Level 140 Potassium Level 3.6 Chloride Level 107 Carbon Dioxide Level 25 Anion Gap 8 Blood Urea Nitrogen 3 L Creatinine 0.42 L Est Glomerular Filtrat Rate mL/min > 60 Glucose Level 129 Calcium Level 8.8 Magnesium Level 2.0 Medications Medication Current Medications Sodium Chloride 1,000 ml @ 100 mls/hr Q10H IV Last administered on 02/25/19at 04:19; Admin Dose 100 MLS/HR; Start 02/23/19 at 20:28 IV Flush (NS 3 ml) 3 ml PER PROTOCOL IV ; Start 02/23/19 at 20:30 Ondansetron HCl (Zofran Inj) 4 mg Q6H PRN IV NAUSEA/VOMITING Last administered on 02/25/19at 00:53; Admin Dose 4 MG; Start 02/23/19 at 20:30 Acetaminophen (Tylenol Tab) 650 mg Q6H PRN PO .PAIN 1-3 OR TEMP; Start 02/23/19 at 20:30 Diazepam (Valium) 2 mg Q6H PRN PO MUSCLE SPASMS Last administered on 02/24/19at 00:19; Admin Dose 2 MG; Start 02/24/19 at 00:00 Hydromorphone HCl (Dilaudid) 1 mg Q3H PRN IV BREAKTHROUGH PAIN Last administered on 02/24/19at 12:17; Admin Dose 1 MG; Start 02/24/19 at 00:00 Ceftriaxone Sodium 500 mg/ Sodium Chloride 50 ml @ 100 mls/hr Q24H IVPB Last administered on 02/24/19at 12:25; Admin Dose 100 MLS/HR; Start 02/24/19 at 11:00; Stop 02/28/19 at 11:29 Ketorolac Tromethamine (Toradol) 30 mg Q6H PRN IV .PAIN 6-10; Start 02/24/19 at 19:30; Stop 02/25/19 at 20:30 Diphenhydramine HCl (Benadryl) 25 mg Q4H PRN IV .PRURITUS; Start 02/24/19 at 19:30; Stop 02/25/19 at 20:30 Nalbuphine HCl (Nubain) 10 mg Q4H PRN IV .PRURITUS; Start 02/24/19 at 19:30; Stop 02/25/19 at 20:30 Trimethobenzamide HCl (Tigan) 200 mg Q6H PRN IM .NAUSEA/VOMITING; Start 02/24/19 at 19:30; Stop 02/25/19 at 20:30 Zolpidem Tartrate (Ambien) 5 mg HS MAY REPEAT X 1 PRN PO .INSOMNIA; Start 02/24/19 at 19:30; Stop 02/25/19 at 20:30 Naloxone HCl (Narcan) 0.2 mg Q2M PRN IV .RESP RATE; Start 02/24/19 at 19:30; Stop 02/25/19 at 20:30 Miscellaneous Information (* Miscellaneous Pharmacy Order) DURAMORPH: 0.2 MG SPI... GIVEN NEURAXIAL XX ; Start 02/24/19 at 19:30 Oxycodone HCl (Roxicodone) 5 mg Q4H PRN PO MODERATE PAIN LEVEL 4-6; Start 02/25/19 at 01:00 Oxycodone HCl (Roxicodone) 10 mg Q4H PRN PO MODERATE PAIN LEVEL 7-8; Start 02/25/19 at 01:00 Oxycodone HCl (Roxicodone) 15 mg Q4H PRN PO SEVERE PAIN LEVEL 9-10; Start 02/25/19 at 01:00 Enoxaparin Sodium (Lovenox) 40 mg DAILY SC ; Start 02/25/19 at 09:00 Cefazolin Sodium 50 ml @ 100 mls/hr Q8 IVPB Last administered on 02/25/19at 05:54; Admin Dose 100 MLS/HR; Start 02/25/19 at 06:00; Stop 02/25/19 at 22:29 Dexamethasone (Decadron) 10 mg ONCE ONCE IV ; Start 02/25/19 at 08:00; Stop 02/25/19 at 08:01 JACKIE LOWRY February 25, 2019 06:52
--- NOTE | 2019-02-25 07:14 | PAC ---
Date/Time of Note Date/Time of Note DATE: 02/25/19 TIME: 07:14 Post-Anesthesia Notes Post-Anesthesia Note Last documented vital signs Vital Signs Date Temp Pulse Resp B/P (MAP) Pulse Ox O2 O2 Flow FiO2 Time Delivery Rate 02/25/19 84 17 101/59 97 Nasal 2.0 04:30 (73) Cannula 02/25/19 97.9 01:31 Activity: WNL Respiratory function: WNL Cardiovascular function: WNL Mental status: Baseline Pain reasonably controlled: Yes Hydration appropriate: Yes Nausea/Vomiting absent: Yes Sandor Celeste M.D. February 25, 2019 07:14
[2019-02-25] MEDS ORDERED: DEXAMETHASONE 10 MG/ML 1 ML INJ IV ONE (08:00)
[2019-02-25] MEDS: ENOXAPARIN 40 MG/0.4 ML SYG SC SCH (09:41)
--- NOTE | 2019-02-25 12:50 | PN ---
Date/Time of Note Date/Time of Note DATE: 02/25/19 TIME: 12:45 Assessment/Plan VTE Prophylaxis Risk score (from Nsg)>0 risk: 5 SCD applied (from Nsg): Yes Pharmacological prophylaxis: LMWH Lines/Catheters IV Catheter Type (from Nrsg): Peripheral IV Urinary Cath still in place: No Reason Cath still needed: other (indicate) (dc today) Assessment/Plan Hospital Course SUBJECTIVE: POD #1. No acute distress. Had been up with physical therapy. Slight oozing from hip site. OBJECTIVE: Vital signs-see below PHYSICAL EXAM: Constitutional: Adequately built,not in acute distress. HEENT: Head atraumatic and normocephalic. Eyes: Extraocular muscles intact. Anicteric sclerae. Pupils equal bilaterally, reactive to light. NECK: Supple without lymph node. CHEST: Clear and good breath sounds equally. No wheezing. No rhonchi. HEART: S1, S2. Regular rate and rhythm. ABDOMEN: Soft/non tender with no rebound tenderness. Bowel sounds were present. EXTREMITIES: Left hip site w/drainage circled. No cyanosis, clubbing or edema. NEUROLOGIC: Alert and oriented x3. No focal deficit. No sensory deficit. PSYCHOSOCIAL: No signs of depression. INTEGUMENTARY: No open wounds. ASSESSMENT AND PLAN:23 yo f w/no pmh admitted w/ closed right femoral fx... 1. Acute right femoral shaft fracture. -S/p Intramedullary nail of right femoral shaft fracture 02/24/2019 -Pain control,dvt ppx -Rehab course per pt/ortho 2. Obesity with BMI 30.3. -Weight reduction advised. 3. Presumed UTI -This has been treated with a full course of antibiotic. No further treatment needed. DVT prophylaxis: Lovenox Disposition: Continue rehab. DC Sibley and IV fluids. Await for orthopedic/PT recommendation on appropriate disposition inpatient versus outpatient rehab. Patient was seen in collaboration with Dr. Telles. Result Diagram: 02/25/191 02/25/19 0451 Results 24hrs Laboratory Tests Test 02/25/19 04:51 White Blood Count 10.4 Red Blood Count 3.76 L Hemoglobin 11.5 L Hematocrit 34.8 L Mean Corpuscular Volume 92.6 Mean Corpuscular Hemoglobin 30.6 Mean Corpuscular Hemoglobin Concent 33.0 Red Cell Distribution Width 12.3 Platelet Count 248 Mean Platelet Volume 9.6 Immature Granulocytes % 0.400 Neutrophils % 91.9 H Lymphocytes % 4.6 L Monocytes % 3.0 Eosinophils % 0.0 Basophils % 0.1 Nucleated Red Blood Cells % 0.0 Immature Granulocytes # 0.040 H Neutrophils # 9.6 H Lymphocytes # 0.5 L Monocytes # 0.3 Eosinophils # 0.0 Basophils # 0.0 Nucleated Red Blood Cells # 0.0 Sodium Level 140 Potassium Level 3.6 Chloride Level 107 Carbon Dioxide Level 25 Anion Gap 8 Blood Urea Nitrogen 3 L Creatinine 0.42 L Est Glomerular Filtrat Rate mL/min > 60 Glucose Level 129 Calcium Level 8.8 Magnesium Level 2.0 Exam/Review of Systems Exam Vitals Vital Signs Date Temp Pulse Resp B/P (MAP) Pulse Ox O2 O2 Flow FiO2 Time Delivery Rate 02/25/19 98.8 87 18 104/59 99 Nasal 09:12 (74) Cannula 02/25/19 2.0 04:30 Intake and Output 02/24/19 02/24/19 02/25/19 1515:00 23:00 07:00 IntakeIntake Total 50 ml 1000 ml 250 ml OutputOutput Total 1900 ml BalanceBalance 50 ml 1000 ml -1650 ml Results Results 24hrs Laboratory Tests Test 02/25/19 04:51 White Blood Count 10.4 Red Blood Count 3.76 L Hemoglobin 11.5 L Hematocrit 34.8 L Mean Corpuscular Volume 92.6 Mean Corpuscular Hemoglobin 30.6 Mean Corpuscular Hemoglobin Concent 33.0 Red Cell Distribution Width 12.3 Platelet Count 248 Mean Platelet Volume 9.6 Immature Granulocytes % 0.400 Neutrophils % 91.9 H Lymphocytes % 4.6 L Monocytes % 3.0 Eosinophils % 0.0 Basophils % 0.1 Nucleated Red Blood Cells % 0.0 Immature Granulocytes # 0.040 H Neutrophils # 9.6 H Lymphocytes # 0.5 L Monocytes # 0.3 Eosinophils # 0.0 Basophils # 0.0 Nucleated Red Blood Cells # 0.0 Sodium Level 140 Potassium Level 3.6 Chloride Level 107 Carbon Dioxide Level 25 Anion Gap 8 Blood Urea Nitrogen 3 L Creatinine 0.42 L Est Glomerular Filtrat Rate mL/min > 60 Glucose Level 129 Calcium Level 8.8 Magnesium Level 2.0 Medications Medication Current Medications IV Flush (NS 3 ml) 3 ml PER PROTOCOL IV ; Start 02/23/19 at 20:30 Ondansetron HCl (Zofran Inj) 4 mg Q6H PRN IV NAUSEA/VOMITING Last administered on 02/25/19at 00:53; Admin Dose 4 MG; Start 02/23/19 at 20:30 Acetaminophen (Tylenol Tab) 650 mg Q6H PRN PO .PAIN 1-3 OR TEMP; Start 02/23/19 at 20:30 Diazepam (Valium) 2 mg Q6H PRN PO MUSCLE SPASMS Last administered on 02/24/19at 00:19; Admin Dose 2 MG; Start 02/24/19 at 00:00 Hydromorphone HCl (Dilaudid) 1 mg Q3H PRN IV BREAKTHROUGH PAIN Last administered on 02/24/19at 12:17; Admin Dose 1 MG; Start 02/24/19 at 00:00 Diphenhydramine HCl (Benadryl) 25 mg Q4H PRN IV .PRURITUS; Start 02/24/19 at 19:30; Stop 02/25/19 at 20:30 Trimethobenzamide HCl (Tigan) 200 mg Q6H PRN IM .NAUSEA/VOMITING; Start 02/24/19 at 19:30; Stop 02/25/19 at 20:30 Zolpidem Tartrate (Ambien) 5 mg HS MAY REPEAT X 1 PRN PO .INSOMNIA; Start 02/24/19 at 19:30; Stop 02/25/19 at 20:30 Miscellaneous Information (* Miscellaneous Pharmacy Order) DURAMORPH: 0.2 MG SPI... GIVEN NEURAXIAL XX ; Start 02/24/19 at 19:30 Oxycodone HCl (Roxicodone) 5 mg Q4H PRN PO MODERATE PAIN LEVEL 4-6; Start 02/25/19 at 01:00 Oxycodone HCl (Roxicodone) 10 mg Q4H PRN PO MODERATE PAIN LEVEL 7-8; Start 02/25/19 at 01:00 Oxycodone HCl (Roxicodone) 15 mg Q4H PRN PO SEVERE PAIN LEVEL 9-10; Start 02/25 at 01:00 Enoxaparin Sodium (Lovenox) 40 mg DAILY SC Last administered on 02/25/19at 09:41; Admin Dose 40 MG; Start 02/25/19 at 09:00 Cefazolin Sodium 50 ml @ 100 mls/hr Q8 IVPB Last administered on 02/25/19at 05:54; Admin Dose 100 MLS/HR; Start 02/25/19 at 06:00; Stop 02/25/19 at 22:29 BERONICA GOMEZ NP February 25, 2019 12:50
--- NOTE | 2019-02-25 14:02 | CONS ---
Consult Date/Type/Reason Admit Date/Time February 23, 2019 at 20:46 Initial Consult Date 02/23/19 Type of Consult Pulmonary Date/Time of Note DATE: 02/25/19 TIME: 14:01 Subjective Patient remained stable this morning following orthopedic surgery. No respiratory distress. Objective Vital Signs Date Temp Pulse Resp B/P (MAP) Pulse Ox O2 O2 Flow FiO2 Time Delivery Rate 02/25/19 98.8 87 18 104/59 99 Nasal 09:12 (74) Cannula 02/25/19 2.0 04:30 Intake and Output 02/24/19 02/24/19 02/25/19 1515:00 23:00 07:00 IntakeIntake Total 50 ml 1000 ml 250 ml OutputOutput Total 1900 ml BalanceBalance 50 ml 1000 ml -1650 ml Exam GENERAL: Well-nourished well-developed lady comfortable at rest no acute distress VITAL SIGNS: per chart NECK: Supple. No JVD or lymphadenopathy. CARDIAC EXAM: S1, S2. No added sounds or murmurs. CHEST: Diminished air entry bilaterally ABDOMEN: Soft, nontender. No guarding or rebound. EXTREMITIES: No cyanosis, clubbing or edema. NEUROLOGIC: Generalized weakness. No focal deficits. Results/Medications Result Diagram: 02/25/191 02/25/19 045 Results 24 hrs Laboratory Tests Test 02/25/19 04:51 White Blood Count 10.4 Red Blood Count 3.76 L Hemoglobin 11.5 L Hematocrit 34.8 L Mean Corpuscular Volume 92.6 Mean Corpuscular Hemoglobin 30.6 Mean Corpuscular Hemoglobin Concent 33.0 Red Cell Distribution Width 12.3 Platelet Count 248 Mean Platelet Volume 9.6 Immature Granulocytes % 0.400 Neutrophils % 91.9 H Lymphocytes % 4.6 L Monocytes % 3.0 Eosinophils % 0.0 Basophils % 0.1 Nucleated Red Blood Cells % 0.0 Immature Granulocytes # 0.040 H Neutrophils # 9.6 H Lymphocytes # 0.5 L Monocytes # 0.3 Eosinophils # 0.0 Basophils # 0.0 Nucleated Red Blood Cells # 0.0 Sodium Level 140 Potassium Level 3.6 Chloride Level 107 Carbon Dioxide Level 25 Anion Gap 8 Blood Urea Nitrogen 3 L Creatinine 0.42 L Est Glomerular Filtrat Rate mL/min > 60 Glucose Level 129 Calcium Level 8.8 Magnesium Level 2.0 Medications Current Medications IV Flush (NS 3 ml) 3 ml PER PROTOCOL IV ; Start 02/23/19 at 20:30 Ondansetron HCl (Zofran Inj) 4 mg Q6H PRN IV NAUSEA/VOMITING Last administered on 02/25/19at 00:53; Admin Dose 4 MG; Start 02/23/19 at 20:30 Acetaminophen (Tylenol Tab) 650 mg Q6H PRN PO .PAIN 1-3 OR TEMP; Start 02/23/19 at 20:30 Diazepam (Valium) 2 mg Q6H PRN PO MUSCLE SPASMS Last administered on 02/24/19at 00:19; Admin Dose 2 MG; Start 02/24/19 at 00:00 Hydromorphone HCl (Dilaudid) 1 mg Q3H PRN IV BREAKTHROUGH PAIN Last administ ered on 02/24/19at 12:17; Admin Dose 1 MG; Start 02/24/19 at 00:00 Diphenhydramine HCl (Benadryl) 25 mg Q4H PRN IV .PRURITUS; Start 02/24/19 at 19:30; Stop 02/25/19 at 20:30 Trimethobenzamide HCl (Tigan) 200 mg Q6H PRN IM .NAUSEA/VOMITING; Start 02/24/19 at 19:30; Stop 02/25/19 at 20:30 Zolpidem Tartrate (Ambien) 5 mg HS MAY REPEAT X 1 PRN PO .INSOMNIA; Start 02/24/19 at 19:30; Stop 02/25/19 at 20:30 Miscellaneous Information (* Miscellaneous Pharmacy Order) DURAMORPH: 0.2 MG SPI... GIVEN NEURAXIAL XX ; Start 02/24/19 at 19:30 Oxycodone HCl (Roxicodone) 5 mg Q4H PRN PO MODERATE PAIN LEVEL 4-6; Start 02/25/19 at 01:00 Oxycodone HCl (Roxicodone) 10 mg Q4H PRN PO MODERATE PAIN LEVEL 7-8; Start 02/25/19 at 01:00 Oxycodone HCl (Roxicodone) 15 mg Q4H PRN PO SEVERE PAIN LEVEL 9-10; Start 02/25/19 at 01:00 Enoxaparin Sodium (Lovenox) 40 mg DAILY SC Last administered on 02/25/19at 09:41; Admin Dose 40 MG; Start 02/25/19 at 09:00 Cefazolin Sodium 50 ml @ 100 mls/hr Q8 IVPB Last administered on 02/25/19at 05:54; Admin Dose 100 MLS/HR; Start 02/25/19 at 06:00; Stop 02/25/19 at 22:29 Assessment/Plan Hospital Course (Demo Recall) Assessment 1. Chest x-ray demonstrating cardiomegaly and possible CHF although normal ejection fraction on echocardiogram 2. Status post femur fracture with internal fixation Plan 1. Continue DVT GI prophylaxis 2. Orthopedic recommendations PT Will follow as needed. OLLIE KEVIN MD, [facility] February 25, 2019 14:02
[2019-02-25] MEDS: oxyCODONE 5 MG TAB PO PRN ×2 (14:08→20:34)
[2019-02-25] MEDS ORDERED: PHENAZOPYRIDINE 100 MG TAB PO ONE (17:30)
--- NOTE | 2019-02-25 18:25 | PN ---
Date/Time of Note Date/Time of Note DATE: 02/25/19 TIME: 18:23 Assessment/Plan Lines/Catheters IV Catheter Type (from Nrsg): Peripheral IV Sibley in Place (from Nrsg): No Assessment/Plan Chief Complaint/Hosp Course 23-year-old female postop day #1 status post IM nail right femoral shaft fracture. Overall she is doing well. Her pain is moderately well controlled. Plan: Pain control Physical therapy Weight-bear as tolerated DVT prophylaxis: SCDs. Lovenox 40 mg daily x6 weeks Postop antibiotics 24 hours from surgery Dressing change postop day #2 Discharge planning Follow-up in my clinic 2 weeks Subjective 24 Hr Interval Summary Patient doing well No acute events overnight Pain is moderately well controlled Exam/Review of Systems Vital Signs Vitals Vital Signs Date Temp Pulse Resp B/P (MAP) Pulse Ox O2 O2 Flow FiO2 Time Delivery Rate 02/25/19 98.4 84 19 104/56 96 Room Air 15:27 (72) 02/25/19 2.0 04:30 Intake and Output 02/24/19 02/24/19 02/25/19 1515:00 23:00 07:00 IntakeIntake Total 50 ml 1000 ml 250 ml OutputOutput Total 1900 ml BalanceBalance 50 ml 1000 ml -1650 ml Exam Free Text/Dictation Right lower extremity: Dressing: Proximal dressing is intact but there is significant shadowing and drainage. The dressing is not leaking. Remainder of the dressings are clean, dry, and intact, no erythema Sensation intact to light touch in a sural, saphenous, deep peroneal, superficial peroneal, medial and lateral plantar nerve distribution. Motor is intact, patient able to dorsiflex and plantarflex ankle and extend and flex great toe. Dorsalis Pedis pulse +2, Brisk capillary refill. Compartments are soft. Calves non-tender to palpation bilaterally. Results Result Diagram: 02/25/19 0451 02/25/19 0451 BRYSON RUSSELL MD February 25, 2019 18:25
[2019-02-26] VITALS (7 sets, daily range): BP systolic 68–110; BP diastolic 29–75; PULSE 48–100; RESP 14–18
[2019-02-26] MEDS: oxyCODONE 5 MG TAB PO PRN ×2 (04:10→10:32)
[2019-02-26] MEDS: ENOXAPARIN 40 MG/0.4 ML SYG SC SCH (08:23)
[2019-02-26] MEDS ORDERED: SOD CHLORIDE 0.9% 500 ML IV ONE (11:00)
--- NOTE | 2019-02-26 11:07 | PN ---
Date/Time of Note Date/Time of Note DATE: 02/26/19 TIME: 11:02 Assessment/Plan VTE Prophylaxis Risk score (from Ns)>0 risk: 2 SCD applied (from Ns): Yes Pharmacological prophylaxis: LMWH Lines/Catheters IV C[facility]ter [facility]from [facility] Saline Lock Urinary Cath still in place: No Assessment/Plan Hospital Course SUBJECTIVE: POD #2. This morning patient's blood pressure dropped to 69/48 and she was feeling dizzy. Patient did receive a dose of diazepam around midnight, followed by a dose of Dilaudid and Roxicodone 10 mg this morning. OBJECTIVE: Vital signs-see below PHYSICAL EXAM: Constitutional: Adequately built,not in acute distress. HEENT: Head atraumatic and normocephalic. Eyes: Extraocular muscles intact. Anicteric sclerae. Pupils equal bilaterally, reactive to light. NECK: Supple without lymph node. CHEST: Clear and good breath sounds equally. No wheezing. No rhonchi. HEART: S1, S2. Regular rate and rhythm. ABDOMEN: Soft/non tender with no rebound tenderness. Bowel sounds were present. EXTREMITIES: Left hip site w/drainage circled. No cyanosis, clubbing or edema. NEUROLOGIC: Alert and oriented x3. No focal deficit. No sensory deficit. PSYCHOSOCIAL: No signs of depression. INTEGUMENTARY: No open wounds. ASSESSMENT AND PLAN:23 yo f w/no pmh admitted w/ closed right femoral fx... 1. Acute right femoral shaft fracture. -S/p Intramedullary nail of right femoral shaft fracture 02/24/2019 -Appropriate Pain control,dvt ppx -Rehab course per pt/ortho 2. Obesity with BMI 30.3. -Weight reduction advised. 3. Presumed UTI -This has been treated with a full course of antibiotic. No further treatment needed. -Pyridium added for symptomatology-UA assure complete tx. 4. Hypotension likely 2/2 opiate/benzo vs orthostasis -Stop benzo/Aniya/Dilaudid -500ml NS bolus -[place] for pain control -Record Orthostatic VS DVT prophylaxis: Lovenox Disposition: Monitor BP closely. Anticipate DC in 24hrs w/HHPPT if BP stable. Patient was seen in collaboration with Dr. Telles. Result Diagram: 02/25/19 0451 02/25/19 0451 Results 24hrs Laboratory Tests Test 02/25/19 19:30 Urine Color YELLOW Urine Clarity CLEAR Urine pH 8.0 Urine Specific [place] 1.008 Urine Ketones TRACE A Urine Nitrite NEGATIVE Urine Bilirubin NEGATIVE Urine Urobilinogen NEGATIVE Urine Leukocyte Esterase NEGATIVE Urine Microscopic RBC 88 H Urine Microscopic WBC 2 Urine Squamous Epithelial Cells FEW Urine Bacteria FEW A Urine Hemoglobin 3+ H Urine Glucose NEGATIVE Urine Total Protein NEGATIVE Exam/Review of Systems Exam Vitals Vital Signs Date Temp Pulse Resp B/P (MAP) Pulse Ox O2 O2 Flow FiO2 Time Delivery Rate 02/26/19 98.5 95 18 98/53 (68) 94 08:04 02/26/19 Room Air 01:38 02/25/19 2.0 04:30 Intake and Output 02/25/19 02/25/19 02/26/19 1515:00 23:00 07:00 IntakeIntake Total 1790 ml 490 ml 50 ml OutputOutput Total 600 ml BalanceBalance 1790 ml -110 ml 50 ml Results Results 24hrs Laboratory Tests Test 02/25/19 19:30 Urine Color YELLOW Urine Clarity CLEAR Urine pH 8.0 Urine Specific [place] 1.008 Urine Ketones TRACE A Urine Nitrite NEGATIVE Urine Bilirubin NEGATIVE Urine Urobilinogen NEGATIVE Urine Leukocyte Esterase NEGATIVE Urine Microscopic RBC 88 H Urine Microscopic WBC 2 Urine Squamous Epithelial Cells FEW Urine Bacteria FEW A Urine Hemoglobin 3+ H Urine Glucose NEGATIVE Urine Total Protein NEGATIVE Medications Medication Current Medications IV Flush (NS 3 ml) 3 ml PER PROTOCOL IV ; Start 02/23/19 at 20:30 Ondansetron HCl (Zofran Inj) 4 mg Q6H PRN IV NAUSEA/VOMITING Last administered on 02/25/19at 00:53; Admin Dose 4 MG; Start 02/23/19 at 20:30 Acetaminophen (Tylenol Tab) 650 mg Q6H PRN PO .PAIN 1-3 OR TEMP; Start 02/23/19 at 20:30 Diazepam (Valium) 2 mg Q6H PRN PO MUSCLE SPASMS Last administered on 02/24/19at 00:19; Admin Dose 2 MG; Start 02/24/19 at 00:00 Hydromorphone HCl (Dilaudid) 1 mg Q3H PRN IV BREAKTHROUGH PAIN Last administered on 02/24/19at 12:17; Admin Dose 1 MG; Start 02/24/19 at 00:00 Miscellaneous Information (* Miscellaneous Pharmacy Order) DURAMORPH: 0.2 MG SPI... GIVEN NEURAXIAL XX ; Start 02/24/19 at 19:30 Oxycodone HCl (Roxicodone) 5 mg Q4H PRN PO MODERATE PAIN LEVEL 4-6 Last administered on 02/26/19at 10:32; Admin Dose 5 MG; Start 02/25/19 at 01:00 Oxycodone HCl (Roxicodone) 10 mg Q4H PRN PO MODERATE PAIN LEVEL 7-8 Last administered on 02/26/19at 04:10; Admin Dose 10 MG; Start 02/25/19 at 01:00 Oxycodone HCl (Roxicodone) 15 mg Q4H PRN PO SEVERE PAIN LEVEL 9-10; Start 02/25/19 at 01:00 Enoxaparin Sodium (Lovenox) 40 mg DAILY SC Last administered on 02/26/19at 08:23; Admin Dose 40 MG; Start 02/25/19 at 09:00 Sodium Chloride 500 ml @ 500 mls/hr Q1H ONCE IV ; Start 02/26/19 at 11:00; Stop 02/26/19 at 11:59 BERONICA GOMEZ NP February 26, 2019 11:07
[2019-02-26] MEDS: HYDROCODONE/APAP (5/325) TAB PO PRN ×2 (17:09→22:09)
[2019-02-26] MEDS ORDERED: ASPIRIN (EC) 81 MG TAB PO ONE (23:30)
[2019-02-27 02:36] VITALS: BP 110/63; PULSE 87; RESP 18
[2019-02-27 08:00] VITALS: BP 111/75; PULSE 75; RESP 18
[2019-02-27] MEDS: HYDROCODONE/APAP (5/325) TAB PO PRN ×2 (08:35→16:13)
[2019-02-27] MEDS: ENOXAPARIN 40 MG/0.4 ML SYG SC SCH (08:38)
--- NOTE | 2019-02-27 12:18 | PDOCDIS ---
Discharge Instructions CONDITION [id number] Patient Condition: [id number] Stable HOME CARE INSTRUCTIONS: [id number] Diet Instructions: Tvyli2s Regular ACTIVITY: [id number] Activity Restrictions: [id number] Slowly Increase Activity Rest between Activity Avoid heavy lifting Do not operate Machinery Do not operate Power Tool Avoid Heavy Housework [id number] Activity Restrictions Comment: [id number] waterproof surgical area FOLLOW UP/APPOINTMENTS Follow-up Plan Follow-up with in his office in 2 weeks. Name, Degree Noe Woodruff MD Specialty Orthopedic Surgery Comments Office Address [address] [place] [address], [address] [place] [address] Office Follow-up with primary care physician in 1 week You are referred for outpatient physical therapy at [facility]. Please follow instruction provided by your case maker to set up appointment with them. BERONICA GOMEZ NP February 27, 2019 12:18
[2019-02-27] MEDS ORDERED: ASPI-817 PO (12:22)
[2019-02-27] MEDS ORDERED: HYDR-4011 PO (12:22)
[2019-02-27] MEDS ORDERED: DOCU-144 PO (12:22)
--- NOTE | 2019-02-27 12:27 | DS ---
Date/Time of Note Date/Time of Note DATE: 02/27/19 TIME: 12:25 Discharge Summary Admission/Discharge Info Admit Date/Time February 23, 2019 at 20:46 Discharge Date/Time Discharge Diagnosis 1. Acute right femoral shaft fracture. -S/p Intramedullary nail of right femoral shaft fracture 02/24/2019 2. Obesity with BMI 30.3. 3. Presumed UTI. Treated Patient Condition: Stable Consults ,ortho Procedures . Right hip x-ray. IMPRESSION: Mildly displaced transverse fracture involving the right femoral diaphysis. Operation performed: Intramedullary nail of right femoral shaft fracture 02/24/2019 Hospital Course :23 yo f w/no pmh admitted w/ closed right femoral shaft fx... Patient underwent Intramedullary nail of right femoral shaft fracture 02/24/2019. Postoperative course was uneventful. Patient was continued on DVT prophylaxis and pain control. She was counseled on weight reduction for underlying obesity. She was also treated for presumed UTI with no further residual symptoms. Patient was evaluated by physical therapy and she was able to walk with front wheel walker. Unfortunately, patient's insurance did not approve for home health physical therapy, as such we were able to get her on outpatient physical therapy at [facility] for which she was given information. For anticoagulation, she is not eligible for novel agent such as Xarelto, Eliquis. For Coumadin, it will be hard for patient to follow-up with a primary care physician or Coumadin clinic as she does not have one. At this time, best recommendation is to continue patient on subcutaneous Lovenox injection which she can self inject. Case management to make sure this is approved. At this time, patient is stable for outpatient follow-up with orthopedic surgeon in 2 weeks. She verbalized instructions. Approximately 60 m spent on coordinating the discharge on this patient. Patient was seen in collaboration with Dr. Telles. Home Meds Active Scripts Enoxaparin Sodium* (Enoxaparin Sodium*) 40 Mg/0.4 Ml Syringe, 40 MG SC DAILY for 40 Days, #40 DOSE Prov:GOMEZ,BERONICA V. RESPIRATORY THERAPY ASSISTANT 02/27/19 Docusate Sodium* (Colace*) 100 Mg Capsule, 100 MG PO BID, #60 CAP Prov:GOMEZ,BERONICA V. RESPIRATORY THERAPY ASSISTANT 02/27/19 Follow-up Plan Follow-up with in his office in 2 weeks. Name, Degree Kacy, Noe Diego MD Specialty Orthopedic Surgery Comments Office Address [address] [place] [address], [address] [place] [address] Office Follow-up with primary care physician in 1 week You are referred for outpatient physical therapy at [facility]. Please follow instruction provided by your case checker to set up appointment with them. Primary Care Provider Care Physician No Primary Pending Labs Laboratory Tests Test 02/26/19 21:13 02/27/19 04:33 Troponin I < 0.012 < 0.012 ng/ml (0.000-0.120) ng/ml (0.000-0.120) White Blood Count 6.6 10^3/ul (4.8-10.8) Red Blood Count 3.46 10^6/ul (4.20-5.40) Hemoglobin 10.7 g/dl (12.0-16.0) Hematocrit 32.2 % (37.0-47.0) Mean Corpuscular Volume 93.1 fl (82.0-101.0) Mean Corpuscular 30.9 pg (29.0-33.0) Hemoglobin Mean Corpuscular 33.2 g/dl (32.0-37.0) Hemoglobin Concent Red Cell Distribution 12.5 % (11.5-14.5) Width Platelet Count 260 10^3/UL (140-415) Mean Platelet Volume 9.7 fl (7.4-10.4) Immature Granulocytes % 0.300 % (0.001-0.429) Neutrophils % 60.6 % (39.0-77.0) Lymphocytes % 29.5 % (15.0-51.0) Monocytes % 7.8 % (0.0-11.0) Eosinophils % 1.5 % (0.0-7.0) Basophils % 0.3 % (0.0-2.0) Nucleated Red Blood Cells 0.0 /100WBC (0.0-0.0) % Immature Granulocytes # 0.020 10^3/ul (0.0-0.031) Neutrophils # 4.0 10^3/ul (1.6-7.5) Lymphocytes # 1.9 10^3/ul (0.8-2.9) Monocytes # 0.5 10^3/ul (0.3-0.9) Eosinophils # 0.1 10^3/ul (0.0-0.5) Basophils # 0.0 10^3/ul (0.0-0.1) Nucleated Red Blood Cells 0.0 10^3/ul (0.0-0.0) # Triglycerides Level 100 mg/dl (0-149) Cholesterol Level 131 mg/dl (100-200) LDL Cholesterol, 66 mg/dl Calculated HDL Cholesterol 45 mg/dl (33-83) Cholesterol/HDL Ratio 2.9 RATIO BERONICA GOMEZ NP February 27, 2019 12:27
[2019-02-27] MEDS ORDERED: MAGNESIUM HYDROXIDE 30ML CUP PO ONE (12:30)
[2019-02-27] MEDS ORDERED: DOCUSATE SODIUM 100 MG CAP PO SCH (12:30)
[2019-02-27] MEDS ORDERED: ENOX40DI2 SC (12:57)
[2019-02-27 14:00] VITALS: BP 107/60; PULSE 98; RESP 18
--- NOTE | 2019-02-27 16:22 | PN ---
Date/Time of Note Date/Time of Note DATE: 02/27/19 TIME: 16:21 Assessment/Plan Lines/Catheters IV Catheter Type (from Nrsg): Peripheral IV Sibley in Place (from Nrsg): No Assessment/Plan Chief Complaint/Hosp Course 23-year-old female postop day #3 status post IM nail right femoral shaft fracture. Overall she is doing well. Her pain is moderately well controlled. Okay to discharge from orthopedic standpoint. Plan: Pain control Physical therapy Weight-bear as tolerated DVT prophylaxis: SCDs. Lovenox 40 mg daily x6 weeks Postop antibiotics 24 hours from surgery Dressing change Discharge planning Follow-up in my clinic 2 weeks Subjective 24 Hr Interval Summary Patient doing well No acute events overnight Pain is well controlled Exam/Review of Systems Vital Signs Vitals Vital Signs Date Temp Pulse Resp B/P (MAP) Pulse Ox O2 O2 Flow FiO2 Time Delivery Rate 02/27/19 98.0 98 18 107/60 97 14:00 (76) 02/27/19 Room Air 08:00 02/25/19 2.0 04:30 Intake and Output 02/26/19 02/26/19 02/27/19 1515:00 23:00 07:00 IntakeIntake Total 900 ml 670 ml BalanceBalance 900 ml 670 ml Exam Free Text/Dictation Right lower extremity: Dressing: clean, dry, and intact, no erythema Sensation intact to light touch in a sural, saphenous, deep peroneal, superficial peroneal, medial and lateral plantar nerve distribution. Motor is intact, patient able to dorsiflex and plantarflex ankle and extend and flex great toe. Dorsalis Pedis pulse +2, Brisk capillary refill. Compartments are s oft. Calves non-tender to palpation bilaterally. Results Result Diagram: 02/27/19 0433 02/25/19 0451 BRYSON RUSSELL MD February 27, 2019 16:22
--- NOTE | 2019-02-27 19:10 | RADRPT ---
Vent Rate: 88 bpm RR Interval: 0 msec MS Interval: 144 msec QRS Duration: 80 msec QT Interval: 348 msec QTC Interval: 421 msec P-R-T [place]: 47 - 67 - 24 degrees Normal sinus rhythm Nonspecific T wave abnormality Abnormal ECG Electronically Signed By: Amador Still
== END 2019-02-27 19:00 | disposition home or self-care (01) | DRG 481 ==
LOC: E/R 18:30 → MS1 20:46
PROVIDERS: ADMIT Internal Medicine; ATTEND Internal Medicine
PROC: 0QS806Z Reposition Right Femoral Shaft with Intramedullary Internal Fixation Device, Open Approach (ICD-10-PCS; principal; 2019-02-24 11:30)
DX: S72.321A Displaced transverse fracture of shaft of right femur, initial encounter for closed fracture (principal); N39.0 Urinary tract infection, site not specified; R65.10 Systemic inflammatory response syndrome (SIRS) of non-infectious origin without acute organ dysfunction; I51.7 Cardiomegaly; E66.9 Obesity, unspecified; Z68.30 Body mass index [BMI] 30.0-30.9, adult; W01.0XXA Fall on same level from slipping, tripping and stumbling without subsequent striking against object, initial encounter; Y93.66 Activity, soccer
CPT/HCPCS: 71045; 72170; 73550; 73562; 80048; 80053; 80061; 81001; 83036; 83605; 83690; 83735; 83880; 84100; 84484; 84703; 85025; 85610; 85730; 87086; 93005; 93306; 97110; 97116; 97161; 97530; C1713; J0690; J0696; J1100; J1170; J1650; J2250; J2274; J2405; J2710; J3010; J3360; J7030; J7040